=== PATIENT | female | born 1965 | race Caucasian/White ===

== ENCOUNTER → 2017-04-25 | Outpatient (CLI) | payer OTHER ==
[~2017-04-25] MED LIST: DULO60CA44 PO; ENOX40IN SQ; FLUT0.15 NAE; FLVHFA44 INH; IPRA0.03 NAE; IPRASOL4 INH; LORA-741 PO; MELO7.5T5 PO; OXYB5TAB PO; OXYC1TAB3 PO; TYLOTC500 PO; VNTHFA/IN INH
--- NOTE | 2017-04-25 13:15 | DIAGNOSTIC IMAGING REPORT ---
A-PORT CHECK CLINICAL HISTORY: 52 years-old Female presenting with RECTAL CA. TECHNIQUE/PROCEDURE: Multiple fluoroscopic spot images were obtained as part of an implanted Mediport evaluation. Approximately 35 cc of Optiray 300 was injected. COMPARISON: None. FINDINGS: Appropriate opacification of the catheter without evidence of breakage or kink. Some resistance of flow was met upon injection. Contrast freely exited the catheter terminates partially opacifying the superior vena cava and right atrium. Normal forward flow through the right atrium. However, a filling defect along the distal portion of the catheter within the superior vena cava is evident. No convincing evidence of a fibrin sheath. Fluoroscopy dosage (mGy): Not available. Fluoroscopy time: 0.3 minutes. Number of fluoroscopic spot images: 38. 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 The more superior portion of the SVC cannot be assessed. Follow-up contrast enhanced CT of the chest to be considered to evaluate for the extent of possible thrombus. The report will be called/faxed according to standard departmental protocol. Electronically signed by: Segun Allred M.D. 04/25/2017 1:14 PM Dictated Date/Time: 04/25/2017 1:10 PM
== END | disposition home or self-care (01) ==
LOC: C.RAD 12:07
PROVIDERS: ATTEND Internal Medicine Hematology
DX: Z51.11 Encounter for antineoplastic chemotherapy (principal); C19 Malignant neoplasm of rectosigmoid junction; T82.514A Breakdown (mechanical) of infusion catheter, initial encounter; X58.XXXA Exposure to other specified factors, initial encounter

== ENCOUNTER 2017-05-13 21:56 | Emergency (ER) | payer OTHER ==
[~2017-05-13] VITALS: Ht 162.6 cm; Wt 87.7 kg
[2017-05-13 21:58] VITALS: Ht 162.6 cm; Wt 87.7 kg
[2017-05-13] MEDS ORDERED: LORA-741 PO (22:27)
[2017-05-13] MEDS ORDERED: IPRA0.03 NAE (22:27)
[2017-05-13] MEDS ORDERED: FLUT0.15 NAE (22:27)
[2017-05-13] MEDS ORDERED: IPRASOL4 INH (22:27)
[2017-05-13] MEDS ORDERED: TYLOTC500 PO (22:27)
[2017-05-13] MEDS ORDERED: ENOX40IN SQ (22:27)
[2017-05-13] MEDS ORDERED: OXYC1TAB3 PO (22:27)
[2017-05-13] MEDS ORDERED: FLVHFA44 INH (22:27)
[2017-05-13] MEDS ORDERED: MELO7.5T5 PO (22:27)
[2017-05-13] MEDS ORDERED: VNTHFA/IN INH (22:27)
[2017-05-13] MEDS ORDERED: DULO60CA44 PO (22:27)
[2017-05-13] MEDS ORDERED: OXYB5TAB PO (22:27)
[2017-05-13 22:42] LABS: MEAN CELL VOLUME 90.7 fL (80-100); MEAN CORPUSCULAR HEMOGLOBIN 29.5 pg (25-34); MEAN CORPUSCULAR HGB CONC 32.5 g/dl (32-36); MEAN PLATELET VOLUME 9.5 fL (7.4-10.4); PLATELET COUNT 496 K/uL (130-400); RED BLOOD COUNT 3.97 M/uL (4.2-5.4); WHITE BLOOD COUNT 10.76 K/uL (4.8-10.8)
[2017-05-13 22:44] LABS: INR 0.9 (0.9-1.1); PARTIAL THROMBOPLASTIN RATIO 0.9
[2017-05-13 22:55] LABS: BUN/CREATININE RATIO 19.9 (10-20); CREATININE 0.77 mg/dl (0.60-1.20); POTASSIUM 3.6 mmol/L (3.5-5.1)
[2017-05-13 23:01] LABS: BASO % 0.7 %; BASO ABS # 0.08 K/uL (0-0.2); COMPLETE YES; EOS % 5.2 %; IG% 0.2 %; LYMPH % 49.7 %; LYMPH ABS # 5.35 K/uL (1.2-3.4); MONO % 7.2 %
[2017-05-13 23:06] LABS: ALB/GLOB RATIO 0.8 (0.9-2); THYROID STIMULATING HORMONE 2.37 uIu/ml (0.300-4.500)
[2017-05-13] MEDS ORDERED: OPTIRAY 320 IV PRN (23:15)
[2017-05-13 23:18] LABS: CKMB/CK RATIO 1.5 (0-3.0)
[2017-05-13 23:25] LABS: URINE APPEARANCE CLOUDY (CLEAR); URINE BILIRUBIN NEG (NEG); URINE COLOR YELLOW; URINE EPITHELIAL CELL AUTO >30 /lpf (0-5); URINE NITRITE NEG (NEG); URINE SPECIFIC GRAVITY 1.011 (1.000-1.030); UROBILINOGEN NEG (NEG); ZZUR CULT IF INDIC CLEAN CATCH YES
[2017-05-13 23:30] LABS: MANUAL MICROSCOPIC REQUIRED? NO; REVIEW REQ? NO
[2017-05-13] MEDS ORDERED: MoRPHine SULFATE 4 MG/ML 1 ML CARP\\VIAL IV STA (23:43)
[2017-05-14] MEDS ORDERED: SODIUM CHLORIDE 0.9% 1000ML 1,000 ML IV STA (00:35)
[2017-05-14] MEDS ORDERED: MoRPHine SULFATE 4 MG/ML 1 ML CARP\\VIAL IV STA (02:27)
[2017-05-14 02:40] VITALS: BP 133/86; PULSE 113; TEMP 36.8; O2SAT 94
--- NOTE | 2017-05-14 02:49 | EMERGENCY ROOM VISIT NOTE ---
History First contact with patient: 22:01 Chief Complaint: ABDOMINAL PAIN Stated Complaint: TINGLING, PREVIOUS COLON SURG, ABD PAIN Nursing Triage Summary: Pt reports she had colorectal surgery 2 weeks ago. Today she developed diffuse abd pain and tingling in bilat hands/feet History of Present Illness The patient is a 52 year old female who presents to the Emergency Room with complaints of lower abdominal pain for the past day who had colon resection 2 weeks ago for colon carcinoma who was receiving chemotherapy as she had metastases to the lung and liver that are now resolved after her PET scan March 2017 of this year. Her last chemotherapy was March 02 of this year. She follows with Dr. Beckman from oncology. Her colon resection was done at [facility] by Dr. Carreon. This is done 2 weeks ago. She describes the pain as aching, ranging in severity 6 out of 10 to the lower abdomen. It does not radiate. Nothing makes it better or worse. Patient called the on-call nurse from the surgery and advised to go the ER. Patient also plans of tingling to all extremities that is slightly worse on the left side. Patient denies difficulty ambulating or difficulty grasping objects. Patient denies chest pain, dyspnea, fever, chills, numbness, weakness, nausea, vomiting, diarrhea, back pain, urinary symptoms. Review of Systems See HPI for pertinent positives & negatives. A total of 10 systems reviewed and were otherwise negative. Past Medical/Surgical History Colon cancer with colon resection and metastasis to the lung and liver, asthma, anxiety, depression, osteoarthritis Social History Smoking Status: Never Smoker Smokeless Tobacco Use: No Alcohol Use: none Drug Use: none Current/Historical Medications Scheduled Duloxetine Hcl (Cymbalta), 60 MG PO DAILY Enoxaparin (Lovenox), 40 MG SQ DAILY Fluticasone Propionate (Flovent Hfa), 2 PUFFS INH BID Fluticasone Propionate (Nasal) (Flonase Allergy Relief), 1 SPRAY TAMY BID Ipratropium [place] (Nasal) (Ipratropium [place]), 2 SPRAY TAMY BID Ipratropium-Albuterol (Duoneb), 1 TREATMENT INH Q4H Lorazepam (Ativan), 0.5-1 MG PO HS Meloxicam (Mobic), 15 MG PO DAILY Oxybutynin Chloride (Oxybutynin Chloride Er), 5 MG PO DAILY Scheduled PRN Acetaminophen (Tylenol), 1,000 MG PO Q8 PRN for Pain Albuterol Hfa (Ventolin Hfa), 2 PUFFS INH Q4 PRN for SOB/Wheezing Oxycodone Ir (Roxicodone Ir), 5-10 MG PO Q4H PRN for Severe Pain Allergies Coded Allergies: Sulfa Antibiotics (Unverified Allergy, Unknown, SOB and hives, 05/13/17) Physical Exam Vital Signs Date Time Temp Pulse Resp B/P (MAP) Pulse Ox O2 Delivery O2 Flow Rate FiO2 05/14/17 02:40 36.8 113 22 133/86 94 Room Air 05/14/17 00:28 111 20 121/103 96 Room Air 05/13/17 21:58 36.7 127 20 167/93 99 Room Air Physical Exam VITALS: Vitals are noted on the nurse's note and reviewed by myself. Vital signs stable. GENERAL: Pleasant female, in no acute distress, nondiaphoretic, well-developed well-nourished. SKIN: The skin was without rashes, erythema, edema, or bruising. There is no tenting of the skin. Capillary reflex less than 2 seconds. HEAD: Normocephalic atraumatic. EARS: External auditory canals clear, tympanic membranes pearly cid without erythema or effusion bilaterally. EYES: Pupils equal round and reactive to light and accommodation. Conjunctivae without injection, sclerae without icterus. Extraocular movements intact. NOSE: Patent, turbinates without inflammation or discharge. MOUTH: Mucous membranes moist. Pharynx without erythema or exudate. Uvula midline. Airway patent. Tongue does not deviate. NECK: Supple without nuchal rigidity. No lymphadenopathy. No thyromegaly. Cervical spine is nontender. No JVD. HEART: Regular rate and rhythm LUNGS: Clear to auscultation bilaterally without wheezes, rales or rhonchi. No dullness to percussion. No retractions or accessory muscle use. ABDOMEN: Positive bowel sounds x 4. Normal tympanic percussion. Soft, tender to palpation lower abdomen, no CVA tenderness, incisional scars intact without signs of infection, without masses or organomegaly. Townsend sign negative. No guarding or rebound tenderness. MUSCULOSKELETAL: No muscle atrophy, erythema, or edema noted. NEURO: Patient was alert and oriented to person place and time. Normal sensation to light and sharp touch. No focal neurological deficits. Medical Decision & Procedures Laboratory Results 05/13/17 22:30 Red Blood Count 3.97, Mean Corpuscular Volume 90.7, Mean Corpuscular Hemoglobin 29.5, Mean Corpuscular Hemoglobin Concent 32.5, Mean Platelet Volume 9.5, Neutrophils (%) (Auto) 37.0, Lymphocytes (%) (Auto) 49.7, Monocytes (%) (Auto) 7.2, Eosinophils (%) (Auto) 5.2, Basophils (%) (Auto) 0.7, Neutrophils # (Auto) 3.97, Lymphocytes # (Auto) 5.35, Monocytes # (Auto) 0.78, Eosinophils # (Auto) 0.56, Basophils # (Auto) 0.08 05/13/17 22:30 Test 05/13/17 22:30 05/13/17 22:56 05/13/17 23:10 White Blood Count 10.76 K/uL (4.8-10.8) Red Blood Count 3.97 M/uL (4.2-5.4) Hemoglobin 11.7 g/dL (12.0-16.0) Hematocrit 36.0 % (37-47) Mean Corpuscular Volume 90.7 fL (80-100) Mean Corpuscular Hemoglobin 29.5 pg (25-34) Mean Corpuscular Hemoglobin Concent 32.5 g/dl (32-36) Platelet Count 496 K/uL (130-400) Mean Platelet Volume 9.5 fL (7.4-10.4) Neutrophils (%) (Auto) 37.0 % Lymphocytes (%) (Auto) 49.7 % Monocytes (%) (Auto) 7.2 % Eosinophils (%) (Auto) 5.2 % Basophils (%) (Auto) 0.7 % Neutrophils # (Auto) 3.97 K/uL (1.4-6.5) Lymphocytes # (Auto) 5.35 K/uL (1.2-3.4) Monocytes # (Auto) 0.78 K/uL (0.11-0.59) Eosinophils # (Auto) 0.56 K/uL (0-0.5) Basophils # (Auto) 0.08 K/uL (0-0.2) RDW Standard Deviation 46.6 fL (36.4-46.3) RDW Coefficient of Variation 14.1 % (11.5-14.5) Immature Granulocyte % (Auto) 0.2 % Immature Granulocyte # (Auto) 0.02 K/uL (0.00-0.02) Prothrombin Time 10.0 SECONDS (9.0-12.0) Prothromb Time International Ratio 0.9 (0.9-1.1) Activated Partial Thromboplast Time 24.0 SECONDS (21.0-31.0) Partial Thromboplastin Ratio 0.9 Anion Gap 9.0 mmol/L (3-11) Est Creatinine Clear Calc Drug Dose 92.7 ml/min Estimated GFR () 103.6 Estimated GFR (Non- 89.4 BUN/Creatinine Ratio 19.9 (10-20) Bedside Lactic Acid Venous 1.71 mmol/L (0.90-1.70) Calcium Level 9.0 mg/dl (8.5-10.1) Magnesium Level 2.0 mg/dl (1.8-2.4) Total Bilirubin 0.1 mg/dl (0.2-1) Aspartate Amino Transf (AST/SGOT) 23 U/L (15-37) Alanine Aminotransferase (ALT/SGPT) 28 U/L (12-78) Alkaline Phosphatase 127 U/L (45-117) Total Creatine Kinase 65 U/L (26-192) Creatine Kinase MB 1.0 ng/ml (0.5-3.6) Total Protein 7.7 gm/dl (6.4-8.2) Albumin 3.3 gm/dl (3.4-5.0) Globulin 4.4 gm/dl (2.5-4.0) Albumin/Globulin Ratio 0.8 (0.9-2) Thyroid Stimulating Hormone (TSH) 2.370 uIu/ml (0.300-4.500) Creatine Kinase MB Ratio (0-3.0) Urine Color YELLOW Urine Appearance CLOUDY (CLEAR) Urine pH 6.0 (4.5-7.5) Urine Specific [place]put[place] 1.011 (1.000-1.030) Urine Protein NEG (NEG) Urine Glucose (UA) NEG (NEG) Urine Ketones NEG (NEG) Urine Occult Blood NEG (NEG) Urine Nitrite NEG (NEG) Urine Bilirubin NEG (NEG) Urine Urobilinogen NEG (NEG) Urine Leukocyte Esterase SMALL (NEG) Urine WBC (Auto) 10-30 /hpf (0-5) Urine RBC (Auto) 0-4 /hpf (0-4) Urine Hyaline Casts (Auto) 1-5 /lpf (0-5) Urine Epithelial Cells (Auto) >30 /lpf (0-5) Urine Bacteria (Auto) 2+ (NEG) Medications Administered Medications (Trade) Dose Ordered Sig/Radha Route Start Time Stop Time Status Last Admin Dose Admin Morphine Sulfate (MoRPHine SULFATE INJ) 4 mg NOW STAT IV 05/13/17 23:43 05/13/17 23:44 DC 05/13/17 23:52 4 MG Sodium Chloride 1,000 ml @ 999 mls/hr Q1H1M STAT IV 05/14/17 00:35 05/14/17 01:35 DC 05/14/17 00:46 999 MLS/HR Morphine Sulfate (MoRPHine SULFATE INJ) 4 mg NOW STAT IV 05/14/17 02:27 05/14/17 02:28 DC 05/14/17 02:36 4 MG ED Course Prior records/ancillary studies reviewed. Triage Nursing notes reviewed. Additional history obtained from family The patient's history was concerning for abdominal pain. Differential diagnosis: Etiologies such as appendicitis, diverticulitis, PUD, biliary pathology, UTI, pancreatitis, obstruction, mesenteric ischemia, aortic pathology, infections, inflammatory bowel disease, renal colic, as well as others were entertained. Physical examination findings: As above. ER treatment provided: NSS, Zofran, Morphine On reassessment the patient felt better. Diagnostics interpreted by me: ECG: Normal sinus, normal intervals, no acute ST-T wave changes, rate of 108. Impression sinus tachycardia interpreted by myself The labs revealed no leukocytosis. Lactic acid 1.7. Negative urine Imaging studies: CT scan was reviewed from stat radiology and shows some inflammatory change control analyst the left lower quadrant retroperitoneal area where the surgery was at Consultation: A consultation was placed with the colorectal surgeon at [facility], Dr. Cuellar. The case was discussed and diagnostics were reviewed. She recommends transfer to their facility for observation. Exam and history seems constant with postsurgical complication from recent colorectal cancer resection. Patient will be transferred to table via ALS in stable condition. Patient is agreeable to transfer. Patient had no leukocytosis. She was well-appearing. She was hydrated as above. Her pain was managed. By the evaluation outlined above emergent etiologies such as appendicitis, diverticulitis, PUD, biliary pathology, UTI, pancreatitis, obstruction, mesenteric ischemia, aortic pathology, inflammatory bowel disease, renal colic , as well as others were deemed relatively unlikely. The pt informed about the findings as listed above. All questions were answered and pleased with the treatment. Case reviewed with my attending. Medical Decision as above Impression Primary Impression: Post-operative complication Additional Impression: Abdominal pain Departure Information Dispostion Transfer Acute Care Facility Condition GOOD Referrals Anuj Block M.D. (PCP) Patient Instructions My [facility] Problem Qualifiers Primary Impression: Post-operative complication Surgical complication system/body Area: digestive system Surgical complication type: other Qualified Codes: K91.89 - Other postprocedural complications and disorders of digestive system
--- NOTE | 2017-05-14 08:25 | DIAGNOSTIC IMAGING REPORT ---
ABD/PELVIS IV CONTRAST ONLY HISTORY: 52 years-old Female lower abd pain, colon rescetion 2 weeks ago for Colon CA acute lower abdominal pain with history of colon cancer and prior recent partial colon resection 2 weeks prior. Initial exam. COMPARISON: None available TECHNIQUE: Multiple axial CT images of the abdomen and pelvis were obtained following the intravenous administration of 93 mL Optiray 320. A dose lowering technique was used consistent with the principals of LEANDRA. FINDINGS: There is a 5 mm noncalcified pulmonary nodule of the posterior basal segment left lower lobe seen on image 73 of the axial series. Focal fatty attenuating area of probable subpleural fat, 10 mm is seen at the level of the right lung base. The liver, spleen, pancreas and adrenal glands are within normal limits. Gallbladder is contracted. Kidneys and proximal ureters are unremarkable. Urinary bladder is within normal limits. Is minimal dilation of the distal ureters, likely reactive changes from the pelvic changes as described below. There is mild atherosclerotic plaquing of the abdominal aorta. There is no bulky retroperitoneal adenopathy. Prior hysterectomy. There is no small bowel dilation or evidence of obstruction. Appendix is normal. Postsurgical changes are noted in the region of the mid sigmoid colon suggesting recent partial sigmoid colon resection with mild surrounding stranding. Round fluid attenuating focus within the dependent pelvis perirectal space is noted, 1.7 x 1.7 cm. No large postsurgical collections are seen. There is additional stranding tracking along the pericolic gutter on the left with probable port site of the ventral supraumbilical midline abdomen seen on image 188. Small fat filled umbilical hernia is noted with diastases 1.4 cm. Mild degenerative changes involve the bilateral sacroiliac joints. No lytic or sclerotic bony metastasis are definitely seen. IMPRESSION: 1. Post surgical changes of the mid sigmoid colon suggests recent partial resection with mild adjacent mesenteric stranding, likely normal postsurgical changes. There is a probable port site of the ventral supraumbilical midline. 2. 1.7 cm fluid attenuating focus of the prerectal dependent pelvis is nonspecific and may reflect a reactive postsurgical fluid collection. No definite abscess or drainable fluid collections are identified. 3. No pneumoperitoneum or bowel obstruction. 4. Small fat filled periumbilical hernia. 5. Indeterminate 5 mm noncalcified pulmonary nodule of the posterior basal segment left lower lobe. Further evaluation with CT of the chest on a nonemergent basis is suggested if not already conducted for metastatic survey. The above report was generated using voice recognition software. It may contain grammatical, syntax or spelling errors. Electronically signed by: Edu Troy M.D. 05/14/2017 8:24 AM Dictated Date/Time: 05/14/2017 8:10 AM
== END 2017-05-14 02:45 | disposition short-term general hospital (02) ==
LOC: C.EDB 21:57
DX: K91.89 Other postprocedural complications and disorders of digestive system (principal); Y83.6 Removal of other organ (partial) (total) as the cause of abnormal reaction of the patient, or of later complication, without mention of misadventure at the time of the procedure; J45.909 Unspecified asthma, uncomplicated; M19.90 Unspecified osteoarthritis, unspecified site; F41.9 Anxiety disorder, unspecified; F32.9 Major depressive disorder, single episode, unspecified; Z85.038 Personal history of other malignant neoplasm of large intestine; Z85.05 Personal history of malignant neoplasm of liver; Z85.118 Personal history of other malignant neoplasm of bronchus and lung; Z92.21 Personal history of antineoplastic chemotherapy; Z90.49 Acquired absence of other specified parts of digestive tract; Z79.01 Long term (current) use of anticoagulants; Z79.899 Other long term (current) drug therapy

== ENCOUNTER 2017-08-29 02:25 | Emergency (ER) | payer OTHER ==
[~2017-08-29] VITALS: Ht 162.6 cm; Wt 92.0 kg
[2017-08-29 02:35] VITALS: Ht 162.6 cm; Wt 92.0 kg
--- NOTE | 2017-08-29 02:36 | EMERGENCY ROOM VISIT NOTE ---
History Report prepared by Vasiliy: Deion Bragg Under the Supervision of: Dr. Damari Ramirez D.O. First contact with patient: 02:30 Chief Complaint: ABDOMINAL PAIN Stated Complaint: ABDOMINAL PAIN History of Present Illness The patient is a 52 year old female who presents to the Emergency Room with complaints of sudden, constant, severe, abdominal pain beginning two hours ago. The patient states she was lying in bed and watching TV when her symptoms began. She reports her pain was across her entire abdomen, and she became nauseous and diaphoretic. The patient notes her pain started at a 10/10 in severity, and it decreased to a 4/10 after EMS gave her pain medication. She states her nausea also decreased after being given Zofran. The patient reports she has a history of metastatic colon cancer. She notes she has been receiving chemo treatment for the past 9 months, and she is currently on chemotherapy pills because it metastasized. The patient states she takes the pills for 14 days and then is off 7 days. She reports she finished her 14 days streak three days ago, and she is now on her 7 day break. The patient notes she felt tired today. She states she went to work the past two days and actually felt her best today. The patient reports she moved her bowel several times today, and they were all normal movements. She denies a history of a bowel obstruction, blood in her stool, fevers, and chills. EMS states the patient was on antibiotics for a UTI last month. Source of History: patient, EMS Onset: 2 hours ago Position: abdomen Symptom Intensity: severe Quality: other (sudden) Timing: constant Associated Symptoms: + diaphoresis, + nausea, No fevers, No chills Note: Denies: blood in stool, history of a bowel obstruction Review of Systems See HPI for pertinent positives & negatives. A total of 10 systems reviewed and were otherwise negative. Past Medical & Surgical Medical Problems: (1) Metastatic colon cancer in female Family History Patient reports no known family medical history. Social History Smoking Status: Never Smoker Alcohol Use: none Drug Use: none Marital Status: single Housing Status: lives alone Occupation Status: employed Current/Historical Medications Scheduled Capecitabine (Xeloda), 3 MG PO BID Duloxetine Hcl (Cymbalta), 60 MG PO DAILY Fluticasone Propionate (Nasal) (Flonase Allergy Relief), 1 SPRAY TAMY BID Ipratropium Galt (Nasal) (Ipratropium Galt), 2 SPRAY TAMY BID Ipratropium-Albuterol (Duoneb), 1 TREATMENT INH QID Meloxicam (Mobic), 15 MG PO DAILY Mometasone Furoate-Formoterol (Dulera 100/5 Mcg), 2 PUFFS INH BID Oxybutynin Chloride (Oxybutynin Chloride Er), 5 MG PO DAILY Pyridoxine Hcl (Vitamin B6 100 Mg), 100 MG PO DAILY Scheduled PRN Albuterol Hfa (Ventolin Hfa), 2 PUFFS INH Q4 PRN for cough,sob,wheeze Carisoprodol (Soma), 350 MG PO Q6 PRN for Muscle Spasms Ondansetron Hcl (Zofran), 8 MG PO Q8 PRN for Nausea Trazodone Hcl (Trazodone), 50 MG PO HS PRN for Sleep Allergies Coded Allergies: Sulfa Antibiotics (Unverified Allergy, Unknown, SOB and hives, 08/29/17) Physical Exam Vital Signs Date Time Temp Pulse Resp B/P (MAP) Pulse Ox O2 Delivery O2 Flow Rate FiO2 08/29/17 06:18 135 08/29/17 05:35 134 24 144/87 95 Room Air 08/29/17 05:07 130 24 132/103 97 Room Air 08/29/17 04:30 133 28 134/91 96 Room Air 08/29/17 03:30 112 18 136/85 96 Room Air 08/29/17 02:35 36.7 113 18 131/86 97 Room Air 08/29/17 02:33 113 Physical Exam HEENT: Head - normocephalic and atraumatic Pupils are equal, round, and reactive to light. Extraocular eye muscles are intact, and sclera are anicteric. Nose - moist nasal mucosa without discharge. Mouth - moist buccal mucosa. Oropharynx is nonerythematous and there is no tonsillar exudate or edema noted. Neck: Supple; no JVD, nuchal rigidity, cervical lymphadenopathy. Heart: Tachycardic rate and regular rhythm. There is a normal S1 and S2 with no murmurs, clicks, or gallops appreciated. Lungs: Clear to auscultation bilaterally with no wheezes, rales, or rhonchi. Abdomen: Soft, mild diffuse tenderness with palpation, distended, with hypoactive bowel sounds. There are no palpable pulsatile masses or hepatosplenomegaly. There is no guarding, rigidity, or rebound noted. Extremities: No evidence of cyanosis, clubbing, or edema. There are easily palpable peripheral pulses. Skin: warm and dry with good turgor and no rashes. Pale. Medical Decision & Procedures ER Provider Diagnostic Interpretation: Radiology results as stated below per my review and the radiologist's interpretation: Obstruction series X-ray: significant colonic fecal retention, dilated colon, med port in place in right chest, perihilar fullness bilaterally. CT ABDOMEN & PELVIS with contrast: Comparison May 13. New and increased size of lung base nodules, some with cavitation. Likely metastases. There are also some new low density liver lesions which were not seen on the previous which may also represent metastatic foci. There is free fluid. In the pelvis, there is more focal fluid with areas of increased density suspicious for hemorrhage. This is seen superior to the bladder and adjacent to the sigmoidectomy site. Exact source is indeterminate. No evidence for appendicitis. No bowel obstruction. Moderate stool burden. Radiologist: John Hoover MD Study ready at 0357 and initial results transmitted at 3822. Laboratory Results 08/29/17 02:40 Red Blood Count 4.35, Mean Corpuscular Volume 89.9, Mean Corpuscular Hemoglobin 29.4, Mean Corpuscular Hemoglobin Concent 32.7, Mean Platelet Volume 9.2, Neutrophils (%) (Auto) 63.4, Lymphocytes (%) (Auto) 28.9, Monocytes (%) (Auto) 4.6, Eosinophils (%) (Auto) 2.3, Basophils (%) (Auto) 0.5, Neutrophils # (Auto) 7.66, Lymphocytes # (Auto) 3.50, Monocytes # (Auto) 0.56, Eosinophils # (Auto) 0.28, Basophils # (Auto) 0.06 08/29/17 02:40 Test 08/29/17 02:40 08/29/17 03:30 08/29/17 06:11 White Blood Count 12.10 K/uL (4.8-10.8) Red Blood Count 4.35 M/uL (4.2-5.4) Hemoglobin 12.8 g/dL (12.0-16.0) Hematocrit 39.1 % (37-47) Mean Corpuscular Volume 89.9 fL (80-100) Mean Corpuscular Hemoglobin 29.4 pg (25-34) Mean Corpuscular Hemoglobin Concent 32.7 g/dl (32-36) Platelet Count 309 K/uL (130-400) Mean Platelet Volume 9.2 fL (7.4-10.4) Neutrophils (%) (Auto) 63.4 % Lymphocytes (%) (Auto) 28.9 % Monocytes (%) (Auto) 4.6 % Eosinophils (%) (Auto) 2.3 % Basophils (%) (Auto) 0.5 % Neutrophils # (Auto) 7.66 K/uL (1.4-6.5) Lymphocytes # (Auto) 3.50 K/uL (1.2-3.4) Monocytes # (Auto) 0.56 K/uL (0.11-0.59) Eosinophils # (Auto) 0.28 K/uL (0-0.5) Basophils # (Auto) 0.06 K/uL (0-0.2) RDW Standard Deviation 59.8 fL (36.4-46.3) RDW Coefficient of Variation 18.4 % (11.5-14.5) Immature Granulocyte % (Auto) 0.3 % Immature Granulocyte # (Auto) 0.04 K/uL (0.00-0.02) Est Creatinine Clear Calc Drug Dose 82.2 ml/min Estimated GFR () 87.0 Estimated GFR (Non- 75.0 BUN/Creatinine Ratio 18.4 (10-20) Calcium Level 8.6 mg/dl (8.5-10.1) Total Bilirubin 0.3 mg/dl (0.2-1) Direct Bilirubin < 0.1 mg/dl (0-0.2) Aspartate Amino Transf (AST/SGOT) 26 U/L (15-37) Alanine Aminotransferase (ALT/SGPT) 22 U/L (12-78) Alkaline Phosphatase 122 U/L (45-117) Total Protein 7.5 gm/dl (6.4-8.2) Albumin 3.4 gm/dl (3.4-5.0) Lipase 170 U/L (73-393) Urine Color YELLOW Urine Appearance CLOUDY (CLEAR) Urine pH 5.0 (4.5-7.5) Urine Specific Jayton 1.021 (1.000-1.030) Urine Protein NEG (NEG) Urine Glucose (UA) NEG (NEG) Urine Ketones NEG (NEG) Urine Occult Blood TRACE (NEG) Urine Nitrite NEG (NEG) Urine Bilirubin NEG (NEG) Urine Urobilinogen NEG (NEG) Urine Leukocyte Esterase NEG (NEG) Urine WBC (Auto) 1-5 /hpf (0-5) Urine RBC (Auto) 0-4 /hpf (0-4) Urine Hyaline Casts (Auto) 10-30 /lpf (0-5) Urine Epithelial Cells (Auto) >30 /lpf (0-5) Urine Bacteria (Auto) NEG (NEG) Urine Pathogenic Casts 1-5 GRANULAR CASTS /lpf (0) Bedside Hemoglobin 12.2 g/dl (12.0-16.0) Bedside Hematocrit 36 % (37-47) Bedside Sodium 137 mEq/L (135-144) Bedside Potassium 4.1 mEq/L (3.3-5.0) Bedside Chloride 101 mEq/L (101-112) Bedside Total CO2 23 mEq/l (24-31) Anion Gap 18.0 mmol/L (16-25) Bedside Blood Urea Nitrogen 14 mg/dl (7-18) Bedside Creatinine 0.7 mg/dl (0.6-1.3) Bedside Glucose (other) 136 mg/dl (70-99) Bedside Ionized Calcium (Kyler) 1.13 mmol/l (1.12-1.32) Laboratory results per my review. Medications Administered Medications (Trade) Dose Ordered Sig/Radha Route Start Time Stop Time Status Last Admin Dose Admin Morphine Sulfate (MoRPHine SULFATE INJ) 4 mg NOW STAT IV 08/29/17 06:01 08/29/17 06:02 DC 08/29/17 06:13 4 MG Procedure 0601: Ordered Morphine Sulfate 4mg IV; IV NSS drip ED Course 0231: The patient was evaluated in room B02. A complete history and physical examination were performed. Nursing notes and previous electronic medical records were reviewed. IV lock was established and labs were drawn as above. The patient had an obstruction series as described above. 0320: I ordered a CT to rule out colonic obstruction. 0324: I reevaluated the patient and updated her about her x-ray results. She is still feeling okay and has agreed to a CT. 0447: I discussed the [facility]'s scan [facility] 0[facility]: I reevaluated the patient and updated her of my consult with Frank. She is coughing and her heart rate has gone up 0524: I discussed the patient's case with Muna Espinosa. He is the one who performed her sigmoidectomy in April. He accepted the patient for transfer and further management and care. 0531: I updated the patient of my consult with Dr. Carreon. She is aware of the transfer. I answered all questioned and discussed the treatment plan. The patient verbalized complete understanding. 0548: I reevaluated the patient. Her heart rate is in the 130s, and she is still anxious. 0600: I reevaluated the patient. Her pain has intensified. The nurse will perform an iSTAT to recheck the patient's H&H. 0601: Ordered Morphine Sulfate 4mg IV 0612: The patient's iSTAT showed a hemoglobin of 12.2 and a hematocrit of 36 Which are unchanged from her initial labs. Medical Decision The patient is a 52 year old female who presents to the ED with severe abdominal pain. Differential diagnosis includes perforated viscus, colonic obstruction, small bowel obstruction, cystitis. Lab results show: WBC of 12.1, hemoglobin of 12.8, hematocrit of 39.1, normal renal function, glucose of 138, LFTs and lipase are normal. Urinalysis had trace blood. This is a 52-year-old female patient with a history of colon cancer status post sigmoidectomy and reanastomosis. She does have metastatic disease to the spine , liver and lung. The patient had a very sudden onset of abdominal pain this evening. CT scan of the abdomen/pelvis shows acute intra-abdominal hemorrhage with hematoma formation. This blood is noted in the area of the sigmoid resection. The radiologist was unable to identify the source of the bleeding. I discussed the case with the patient's surgeon in [place]. He does not believe that the source will be the sigmoid resection since the surgery is remote. We discussed the possibility of a gynecologic source of the bleeding. The patient's blood pressure has remained stable. H&H remained stable. The patient did have increased tachycardia while here in the emergency department but her blood pressure remained stable. The patient did have an episode of coughing which required the use of her inhaler. She states that when this happens, it is not unusual for her heart rate to go up. She did not complain of any shortness of breath. She was not hypoxic. Orders were written for ALS transfer. Consults Time Called: 050 Consulting Physician: Muna Espinosa Returned Call: 05 I discussed the patient's case with Muna Espinosa. He accepted the patient for transfer and further management and care. Impression Primary Impression: Intra abdominal hemorrhage Scribe Attestation The scribe's documentation has been prepared under my direction and personally reviewed by me in its entirety. I confirm that the note above accurately reflects all work, treatment, procedures, and medical decision making performed by me. Departure Information Dispostion Transfer Acute Care Facility Referrals Anuj Block M.D. (PCP) Patient Instructions My [facility]
[2017-08-29 02:54] LABS: BASO % 0.5 %; BASO ABS # 0.06 K/uL (0-0.2); EOS % 2.3 %; EOS ABS # 0.28 K/uL (0-0.5); HEMATOCRIT 39.1 % (37-47); HEMOGLOBIN 12.8 g/dL (12.0-16.0); IG# 0.04 K/uL (0.00-0.02); LYMPH % 28.9 %; MEAN CELL VOLUME 89.9 fL (80-100); MEAN CORPUSCULAR HEMOGLOBIN 29.4 pg (25-34); MEAN CORPUSCULAR HGB CONC 32.7 g/dl (32-36); MEAN PLATELET VOLUME 9.2 fL (7.4-10.4); MONO % 4.6 %; MONO ABS # 0.56 K/uL (0.11-0.59); NEUT % 63.4 %; NEUT ABS # 7.66 K/uL (1.4-6.5); PLATELET COUNT 309 K/uL (130-400); RED CELL DISTRIBUTION WIDTH CV 18.4 % (11.5-14.5); RED CELL DISTRIBUTION WIDTH SD 59.8 fL (36.4-46.3)
[2017-08-29 03:16] LABS: ALBUMIN 3.4 gm/dl (3.4-5.0); ALT/SGPT 22 U/L (12-78); AST/SGOT 26 U/L (15-37); BLOOD UREA NITROGEN 16 mg/dl (7-18); CALCIUM 8.6 mg/dl (8.5-10.1); CARBON DIOXIDE 26 mmol/L (21-32); CREATININE 0.89 mg/dl (0.60-1.20); GLUCOSE 138 mg/dl (70-99); LIPASE 170 U/L (73-393); POTASSIUM 3.6 mmol/L (3.5-5.1); SODIUM 135 mmol/L (136-145)
[2017-08-29 03:19] LABS: ALKALINE PHOSPHATASE 122 U/L (45-117); TOTAL PROTEIN 7.5 gm/dl (6.4-8.2)
[2017-08-29] MEDS ORDERED: OPTIRAY 320 IV PRN (03:30)
[2017-08-29] MEDS ORDERED: TRAZ50TA35 PO (04:08)
[2017-08-29] MEDS ORDERED: PYRI100T4 PO (04:09)
[2017-08-29] MEDS ORDERED: MOME100A INH (04:09)
[2017-08-29] MEDS ORDERED: ONDA8TAB6 PO (04:09)
[2017-08-29] MEDS ORDERED: XLD/500 PO (04:11)
[2017-08-29] MEDS ORDERED: CARI350T28 PO (04:12)
[2017-08-29] MEDS ORDERED: IPRASOL4 INH (04:13)
[2017-08-29] MEDS ORDERED: MELO15TA10 PO (04:14)
[2017-08-29] MEDS ORDERED: MoRPHine SULFATE 4 MG/ML 1 ML CARP\\VIAL IV STA (06:01)
[2017-08-29 06:23] LABS: ISTAT CREATININE 0.7 mg/dl (0.6-1.3); ISTAT IONIZED CALCIUM 1.13 mmol/l (1.12-1.32); ISTAT POTASSIUM 4.1 mEq/L (3.3-5.0)
--- NOTE | 2017-08-29 07:23 | DIAGNOSTIC IMAGING REPORT ---
CHEST AND ABDOMEN 2 VIEWS HISTORY: Generalized abdominal pain. COMPARISON: Abdomen and pelvis CT 05/13/2017. FINDINGS: There are few bilateral point nodule identified consistent with metastatic disease. The heart is normal in size. No pleural effusions. No pneumothorax. Right jugular Port-A-Cath terminates in the SVC. No pneumoperitoneum. No pneumatosis. No dilated loops of small bowel to suggest an obstruction. Moderate well-formed stool seen throughout the colon. Calcifications in the deep pelvis are consistent with phleboliths. No renal or ureteral calculi identified. IMPRESSION: 1. A few scattered bilateral pulmonary nodules consistent with metastatic disease. 2. Moderate well-formed stool seen throughout the colon. 3. No evidence for bowel obstruction. Electronically signed by: Titus Page M.D. 08/29/2017 7:22 AM Dictated Date/Time: 08/29/2017 7:19 AM
--- NOTE | 2017-08-29 07:44 | DIAGNOSTIC IMAGING REPORT ---
ABDOMEN AND PELVIS CT WITH IV CONTRAST CT DOSE: 875.50 mGy.cm HISTORY: Mid abdominal pain. Colon cancer. TECHNIQUE: Multiaxial CT images of the abdomen and pelvis were performed following the use of intravenous contrast. A dose lowering technique was utilized adhering to the principles of ALARA. COMPARISON STUDY: Abdomen and pelvis CT 05/13/2017. FINDINGS: Bilateral pulmonary nodules with the largest on the right measuring 2.1 cm. This is consistent with metastatic disease and has slightly progressed . No pneumoperitoneum. No pneumatosis. 1.2 cm lytic lesion at L1 which is new from the prior study. This also likely represents metastatic disease. Small fat-containing umbilical hernia. A few new small hypodense lesions within the liver with the largest measuring 13 mm. This is consistent with metastatic disease. The gallbladder, spleen, adrenal glands, pancreas, and kidneys are unremarkable. No retroperitoneal lymphadenopathy. Trace perihepatic ascites. The uterus is surgically absent. The bladder is decompressed. Trace perisplenic fluid. Anastomotic suture material at the mid sigmoid colon. Moderate stool within the colon. No dilated loops of bowel to suggest an obstruction. Normal appendix. Immediately superior to the bladder there is a 9.2 x 0.4 cm solid and cystic cystic lesion. Small amount of ascites is present. This cystic lesion results in mass effect along the bladder. This is new from the prior study and may be contiguous with the left ovary. Therefore, this favors an ovarian metastasis in the setting of peritoneal carcinomatosis. Question of subtle nodular thickening along the left paracolic gutter. This could also represent sites of developing peritoneal carcinomatosis. IMPRESSION: 1. Interval progression of metastatic disease as described above including new hepatic lesions. 2. There is a 9.2 x 8.4 cm lesion within the deep pelvis which demonstrates both solid and cystic components. This may be contiguous with the left ovary and is therefore highly suspicious with an ovarian metastasis. Focal area of hemorrhage or left ovarian torsion could also have a similar appearance but are considered less likely. Clinical correlation recommended. 3. Interval development of a small amount of ascites and question of subtle nodular thickening along the left paracolic gutter. This is also worrisome for peritoneal carcinomatosis. 4. No evidence for bowel obstruction. Electronically signed by: Titus Page M.D. 08/29/2017 7:43 AM Dictated Date/Time: 08/29/2017 7:28 AM
[2017-08-29 07:58] VITALS: BP 149/101; PULSE 130; TEMP 36.7; O2SAT 92
== END 2017-08-29 08:00 | disposition short-term general hospital (02) ==
LOC: EDBD 02:25 → C.EDB 02:27
DX: R58 Hemorrhage, not elsewhere classified (principal); R11.0 Nausea; R61 Generalized hyperhidrosis; C18.9 Malignant neoplasm of colon, unspecified; C79.51 Secondary malignant neoplasm of bone; C78.7 Secondary malignant neoplasm of liver and intrahepatic bile duct; C78.00 Secondary malignant neoplasm of unspecified lung; R00.0 Tachycardia, unspecified; R05 Cough; Z90.49 Acquired absence of other specified parts of digestive tract; Z79.1 Long term (current) use of non-steroidal anti-inflammatories (NSAID)

== ENCOUNTER → 2017-10-11 | Outpatient (CLI) | payer OTHER ==
[~2017-10-11] MED LIST changes: +ACET-1311 PO; +CARI350T28 PO; +DIPH-416 PO; +DXM/4 PO; +ENOX30IN4 SQ; -ENOX40IN SQ; +ENOX60IN SQ; -FLVHFA44 INH; +GADAVIST IV PRN; +LOPE1TAB25 PO; -LORA-741 PO; +MELO15TA10 PO; -MELO7.5T5 PO; +METO25TA3 PO; +MOME100A INH; +MORP-157 PO; +ONDA8TAB6 PO; +OXYC-57 PO; -OXYC1TAB3 PO; +PRLSR20 PO; +PROC1TAB5 PO; +PYRI100T4 PO; +TRAZ50TA35 PO; -TYLOTC500 PO; +XLD/500 PO
--- NOTE | 2017-10-11 14:45 | DIAGNOSTIC IMAGING REPORT ---
MRI THE PELVIS WITHOUT AND WITH GADOLINIUM CLINICAL HISTORY: Right hip pain. Metastatic colon carcinoma. COMPARISON STUDY: CT scan of the abdomen pelvis dated 08/29/2017 FINDINGS: Imaging was performed in the sagittal axial and coronal planes, before and after the administration of 8.5 cc of intravenous Gadavist. There are multifocal areas of marrow replacement, including a large 7 cm focus involving the right iliac bone and acetabulum. The findings are indicative of extensive skeletal metastasis. Lesions also involve the left ischium, and left sacrum. The large left pelvic mass described on the recent CT scan is no longer visualized. The patient is status post a prior hysterectomy. IMPRESSION: Multifocal areas of marrow replacement including a 7 cm lesion involving the right iliac bone and acetabulum. The findings are indicative of multifocal skeletal metastasis Electronically signed by: Javon Carrillo M.D. 10/11/2017 2:43 PM Dictated Date/Time: 10/11/2017 2:36 PM
== END | disposition home or self-care (01) ==
LOC: C.MRI 13:13
PROVIDERS: ATTEND Internal Medicine Hematology & Oncology
DX: M25.551 Pain in right hip (principal); C78.5 Secondary malignant neoplasm of large intestine and rectum

== ENCOUNTER → 2017-10-15 | Outpatient (CLI) | payer OTHER ==
--- NOTE | 2017-10-15 15:25 | DIAGNOSTIC IMAGING REPORT ---
LUMBAR SPINE COMBINATION CLINICAL HISTORY: 52 years-old Female presenting with ACUTE LOW BACK PAIN W/O SCIATICA, acute lumbar pain radiating into the right groin, history of colon and ovarian cancer. TECHNIQUE: Multisequence, multiplanar MR imaging of the lumbar spine was performed before and after the administration of intravenous contrast. IV contrast: 8.5 mL of Gadavist. COMPARISON: CT of abdomen pelvis from 08/29/2017. FINDINGS: Localizer images: Unremarkable. T1 hypointense, T2 hyperintense lesion is noted in the L1 vertebral body, which in retrospect was evident on CT from 08/29/2017. This demonstrates avid enhancement on postcontrast imaging. There is slight increased enhancement along the anterior aspect of the L1 vertebral body, which could suggest minimal soft tissue extension (series 18 image 8). Additional lesions of similar signal characteristics are evident though smaller than the lesion at L1. Lesions are noted at L2, L5, and the left sacral ala. No evidence of cortical breakthrough or soft tissue extension beyond the vertebral bodies at L2 or L5. No abnormal enhancement within the spinal canal to suggest CSF dissemination. Vertebral bodies maintain normal height and alignment. Apart from the previously described lesions, bone marrow signal intensity is normal. Mild disc desiccation and height loss noted at L4-5, where there is a mild disc bulge. This somewhat eccentrically bulges toward the right posterior lateral aspect. This results in potential mass effect on the exiting right L4 nerve root and the transiting right L5 nerve root. Moderate right and mild left neural foraminal narrowing. The remaining levels do not demonstrate significant spinal canal or neural foraminal narrowing. Spinal cord ends in good position at the inferior endplate of L1. Cauda equina normal in morphology. Paraspinal soft musculature within normal limits. Nonspecific edema in the subcutaneous tissue of the posterior lumbar region. IMPRESSION: 1. Findings highly suspicious for metastatic disease at L1, L2, L5, and the left sacral ala. Trace extra vertebral soft tissue extension anteriorly at L1 may be present. 2. Focal degenerative change at L4-5 with a disc bulge resulting in potential mass effect on the exiting right L4 nerve root and transiting right L5 nerve root. Moderate right and mild left neural foraminal narrowing at L4-5. The report will be called/faxed according to standard departmental protocol. Electronically signed by: Segun Allred M.D. 10/15/2017 3:24 PM Dictated Date/Time: 10/15/2017 3:17 PM
--- NOTE | 2017-10-15 15:26 | DIAGNOSTIC IMAGING REPORT ---
THORACIC SPINE COMBO HISTORY: 52 years-old Female ACUTE LOW BACK PAIN W/O SCIATICA acute low back pain with radiation into the right groin. History of colon and ovarian carcinoma. COMPARISON: CT abdomen and pelvis 08/29/2017 TECHNIQUE: Multiplanar multisequence MRI the thoracic spine was obtained both with and without the use of 8.5 mL Gadavist FINDINGS: Ill-defined hepatic lesions are seen on the large filling view probate paralegal localizer images compatible with hepatic metastasis as seen on comparison study. 2.2 x 2.7 cm lesion involves the posterior right lower lobe. There is an infiltrative lesion involving the L1 vertebral body demonstrating decreased T1 signal and increased STIR signal compatible with metastasis. 7 mm lesion involves the L2 vertebral body. Additionally, there is a 1.1 cm lesion involving the superior left aspect of the T8 vertebral body nicely seen on image 10 of series 5. No extension into the posterior elements. No significant central canal or foraminal narrowing. Probable focal fatty marrow involves the inferior endplate T9, 7 mm. No significant intervertebral disc space narrowing identified. IMPRESSION: 1. 11 mm metastatic lesion of the T8 vertebral body is noted without extension into the central canal. No significant central canal or foraminal narrowing. Additional metastatic lesions are seen at the L1 and L2 vertebral levels. 2. Redemonstration of hepatic and pulmonary metastasis. The above report was generated using voice recognition software. It may contain grammatical, syntax or spelling errors. Electronically signed by: Edu Troy M.D. 10/15/2017 3:25 PM Dictated Date/Time: 10/15/2017 3:16 PM
== END | disposition home or self-care (01) ==
LOC: C.MRI 12:57
PROVIDERS: ATTEND Internal Medicine Hematology & Oncology
DX: M25.551 Pain in right hip (principal); C78.5 Secondary malignant neoplasm of large intestine and rectum; M51.26 Other intervertebral disc displacement, lumbar region; C79.51 Secondary malignant neoplasm of bone; C78.7 Secondary malignant neoplasm of liver and intrahepatic bile duct; C78.01 Secondary malignant neoplasm of right lung

== ENCOUNTER 2017-10-29 14:25 | Inpatient (IN) | payer OTHER ==
[~2017-10-29] VITALS: Ht 162.6 cm; Wt 84.3 kg
[~2017-10-29 14:25] MED LIST changes: -CARI350T28 PO; -GADAVIST IV PRN; -IPRA0.03 NAE; -MELO15TA10 PO; -PYRI100T4 PO; -XLD/500 PO
[2017-10-29] MEDS ORDERED: NYSTATIN SUSP 500,000 U/5 ML UDC PO STA (15:38)
[2017-10-29] MEDS ORDERED: OPTIRAY 320 IV PRN (15:45)
[2017-10-29 15:49] LABS: BASO % 0.2 %; BASO ABS # 0.01 K/uL (0-0.2); EOS % 0.2 %; EOS ABS # 0.01 K/uL (0-0.5); HEMOGLOBIN 12.4 g/dL (12.0-16.0); IG# 0.06 K/uL (0.00-0.02); LYMPH % 23.5 %; LYMPH ABS # 1.03 K/uL (1.2-3.4); MEAN CELL VOLUME 86.6 fL (80-100); MEAN CORPUSCULAR HEMOGLOBIN 28.2 pg (25-34); MEAN CORPUSCULAR HGB CONC 32.6 g/dl (32-36); MEAN PLATELET VOLUME 9.1 fL (7.4-10.4); MONO % 5.7 %; MONO ABS # 0.25 K/uL (0.11-0.59); NEUT ABS # 3.02 K/uL (1.4-6.5); PLATELET COUNT 317 K/uL (130-400); RED CELL DISTRIBUTION WIDTH CV 17.5 % (11.5-14.5); RED CELL DISTRIBUTION WIDTH SD 55.3 fL (36.4-46.3); WHITE BLOOD COUNT 4.38 K/uL (4.8-10.8)
--- NOTE | 2017-10-29 15:49 | EMERGENCY ROOM VISIT NOTE ---
History First contact with patient: 14:58 Chief Complaint: TACHYCARDIA Stated Complaint: U Nursing Triage Summary: Patient a isa sent from [facility]. Patient was there today for raditaion treatment. When patient arrived to cancer center she felt like her heart was racing and when they took her VS her HR was around 120. They did not want to do the radiation with her heart rate that high and they brought patient to ED. Patient reports that she was also having chest pain and shortness of breath. The chest pain and shortness of breath have resolved at this time. Currently also doing chemo. Reports that she has been feeling tired and slept almost all weekend. History of Present Illness The patient is a 52 year old female who presents to the Emergency Room with complaints of dizziness and tachycardia which started at noon. She has a history of metastatic colon cancer and had been receiving chemotherapy and radiation. She was scheduled for radiation therapy can later this afternoon and was sent to the ER from the [facility] because of the tachycardia. States that she had left-sided chest pain which is now resolved denies any fevers or chills or cough. Also complains of dizziness. Denies any nausea, abdominal pain, diarrhea, dysuria. She has a history of PE and is currently on Lovenox but had missed 2 doses over the weekend. She also is on Toprol-XL for tachycardia and had missed her 2 evening doses. Source of History: patient Associated Symptoms: No fevers, No chills, No diaphoresis, No chest pain, No SOB, No nausea, No vomiting Review of Systems See HPI for pertinent positives & negatives. A total of 10 systems reviewed and were otherwise negative. Past Medical/Surgical History Medical Problems: (1) Metastatic colon cancer in female Family History Patient reports no known family medical history. Social History Smoking Status: Never Smoker Alcohol Use: none Drug Use: none Marital Status: single Housing Status: lives alone Occupation Status: employed Current/Historical Medications Scheduled Dexamethasone (Decadron), 4 MG PO BID Duloxetine Hcl (Cymbalta), 60 MG PO DAILY Enoxaparin (Lovenox), 90 MG INJ Q12 Fluticasone Propionate (Nasal) (Flonase Allergy Relief), 1 SPRAY NEB BID Metoprolol Succ (Toprol Xl) (Toprol-Xl), 25 MG PO QAM Metoprolol Succ (Toprol Xl) (Toprol-Xl), 12.5 MG PO QPM Mometasone Furoate-Formoterol (Dulera 100/5 Mcg), 2 PUFFS INH BID Morphine Sulfate (Morphine Sulfate ER), 30 MG PO Q12 Omeprazole (Prilosec), 20 MG PO DAILY Oxybutynin Chloride (Ditropan Xl), 5 MG PO DAILY Scheduled PRN Albuterol Sulfate (Proventil Hfa), 2 PUFFS INH Q4 PRN for SOB/Wheezing Diphenoxylate/Atropine (Lomotil), 1 TAB PO QID PRN for Diarrhea Ipratropium-Albuterol (Duoneb), 1 TREATMENT INH Q4H PRN for SOB/Wheezing Loperamide Hcl (Imodium), 2 MG PO UD PRN for Diarrhea Ondansetron Hcl (Zofran), 8 MG PO Q8 PRN for Nausea Oxycodone/Acetaminophen 5MG/325MG (Percocet 5MG/325MG), 1 TABLET PO Q4H PRN for Pain Prochlorperazine Maleate (Compazine), 10 MG PO Q6H PRN for Nausea Trazodone Hcl (Trazodone), 50 MG PO QPM PRN for Sleep Physical Exam Vital Signs Date Time Temp Pulse Resp B/P (MAP) Pulse Ox O2 Delivery O2 Flow Rate FiO2 10/29/17 19:25 99 10/29/17 18:20 130 119/87 99 Room Air 10/29/17 18:16 114 107/81 119 114/87 140 66/50 10/29/17 17:51 113 25 111/82 97 Room Air 10/29/17 16:07 113 119/81 99 Room Air 10/29/17 14:45 97 Room Air 10/29/17 14:42 109 10/29/17 14:41 97 Room Air 10/29/17 14:39 37.0 115 14 117/90 98 Room Air Physical Exam GENERAL: Patient is in no acute distress. HEENT: No acute trauma, normocephalic atraumatic, mucous membranes moist, oral thrush, no nasal congestion, no scleral icterus. NECK: No stridor, no adenopathy, no meningismus, trachea is midline. LUNGS: Clear to auscultation bilaterally, no wheeze, no rhonchi, breath sounds equal. HEART: tachycardia with no murmurs ABDOMEN: Soft, nontender, bowel sounds positive, no hernias, no peritonitis. EXTREMITIES: No cyanosis or edema, full range of motion of all the joints without pain or difficulty, no signs for acute trauma. NEUROLOGIC: Oriented x 3, no acute motor or sensory deficits, no focal weakness. SKIN: No rash, no jaundice, no diaphoresis. Medical Decision & Procedures ER Provider Diagnostic Interpretation: (CHEST FOR PE) ANGIO WITH CT DOSE: 501.15 mGy.cm HISTORY: Chest pain dyspnea TECHNIQUE: Multiaxial CT images of the chest were performed following the intravenous administration of contrast to evaluate the pulmonary arteries. Maximal intensity projection images were also obtained. A dose lowering technique was utilized adhering to the principles of ALARA. COMPARISON STUDY: 10/15/2017 FINDINGS: Study is positive for pulmonary emboli involving the right lower lobe pulmonary arterial supply. The remaining pulmonary vasculature enhances appropriately. Thoracic aorta is negative for aneurysm or dissection. No evidence for focal infiltrate. Masslike changes of the lungs and spine are again noted consistent with the patient's known metastatic disease. IMPRESSION: 1. Study is positive for pulmonary embolus involving the right lower lobe pulmonary arterial vasculature.. 2. Multiple pulmonary nodules and lesions of the thoracic spine consistent with the patient is known metastatic bone and pulmonary disease. 3. No evidence for focal infiltrate. The above report was generated using voice recognition software. It may contain grammatical, syntax or spelling errors. Electronically signed by: Yaron Montaño M.D. 10/29/2017 5:29 PM Dictated Date/Time: 10/29/2017 5:26 PM The status of this report is Signed. Draft = Not yet reviewed or approved by Radiologist. Signed = Reviewed and approved by Radiologist. <AttendingPhy></AttendingPhy> <FamilyPhy>Skyler Mei MD</FamilyPhy> < PrimaryPhy>Anuj Block M.D.</PrimaryPhy> <UnitNumber>[id number]</UnitNumber > <VisitNumber>[id number]</VisitNumber> <PatientName>RITESH MARTEL</PatientName > <DateOfBirth>1965</DateOfBirth> <Location>[facility]</Location> <ServiceDate> 10/29/17</ServiceDate> <MNE>ESINDI</MNE> <OrderingPhy>Dalila Duval MD</ OrderingPhy Laboratory Results 10/29/17 15:40 Red Blood Count 4.39, Mean Corpuscular Volume 86.6, Mean Corpuscular Hemoglobin 28.2, Mean Corpuscular Hemoglobin Concent 32.6, Mean Platelet Volume 9.1, Neutrophils (%) (Auto) 69.0, Lymphocytes (%) (Auto) 23.5, Monocytes (%) (Auto) 5.7, Eosinophils (%) (Auto) 0.2, Basophils (%) (Auto) 0.2, Neutrophils # (Auto) 3.02, Lymphocytes # (Auto) 1.03, Monocytes # (Auto) 0.25, Eosinophils # (Auto) 0.01, Basophils # (Auto) 0.01 10/29/17 15:40 Test 10/29/17 15:40 White Blood Count 4.38 K/uL (4.8-10.8) Red Blood Count 4.39 M/uL (4.2-5.4) Hemoglobin 12.4 g/dL (12.0-16.0) Hematocrit 38.0 % (37-47) Mean Corpuscular Volume 86.6 fL (80-100) Mean Corpuscular Hemoglobin 28.2 pg (25-34) Mean Corpuscular Hemoglobin Concent 32.6 g/dl (32-36) Platelet Count 317 K/uL (130-400) Mean Platelet Volume 9.1 fL (7.4-10.4) Neutrophils (%) (Auto) 69.0 % Lymphocytes (%) (Auto) 23.5 % Monocytes (%) (Auto) 5.7 % Eosinophils (%) (Auto) 0.2 % Basophils (%) (Auto) 0.2 % Neutrophils # (Auto) 3.02 K/uL (1.4-6.5) Lymphocytes # (Auto) 1.03 K/uL (1.2-3.4) Monocytes # (Auto) 0.25 K/uL (0.11-0.59) Eosinophils # (Auto) 0.01 K/uL (0-0.5) Basophils # (Auto) 0.01 K/uL (0-0.2) RDW Standard Deviation 55.3 fL (36.4-46.3) RDW Coefficient of Variation 17.5 % (11.5-14.5) Immature Granulocyte % (Auto) 1.4 % Immature Granulocyte # (Auto) 0.06 K/uL (0.00-0.02) Prothrombin Time 10.7 SECONDS (9.0-12.0) Prothromb Time International Ratio 1.0 (0.9-1.1) Activated Partial Thromboplast Time 21.0 SECONDS (21.0-31.0) Partial Thromboplastin Ratio 0.8 Anion Gap 11.0 mmol/L (3-11) Est Creatinine Clear Calc Drug Dose 85.1 ml/min Estimated GFR () 93.3 Estimated GFR (Non- 80.5 BUN/Creatinine Ratio 25.7 (10-20) Calcium Level 8.3 mg/dl (8.5-10.1) Total Bilirubin 0.8 mg/dl (0.2-1) Aspartate Amino Transf (AST/SGOT) 18 U/L (15-37) Alanine Aminotransferase (ALT/SGPT) 29 U/L (12-78) Alkaline Phosphatase 216 U/L (45-117) Troponin I < 0.015 ng/ml (0-0.045) Total Protein 7.3 gm/dl (6.4-8.2) Albumin 3.2 gm/dl (3.4-5.0) Globulin 4.1 gm/dl (2.5-4.0) Albumin/Globulin Ratio 0.8 (0.9-2) Thyroid Stimulating Hormone (TSH) 2.680 uIu/ml (0.300-4.500) Medications Administered Medications (Trade) Dose Ordered Sig/Radha Route Start Time Stop Time Status Last Admin Dose Admin Nystatin (Mycostatin Susp) 5 ml NOW STAT PO 10/29/17 15:38 10/29/17 15:40 DC 10/29/17 16:07 5 ML ECG Per My Interpretation Indication: palpitations Rate (beats per minute): 113 Rhythm: sinus tachycardia Findings: no acute ischemic change, no ectopy Comparison ECG Date: 05/13/17 Change: no significant change Medical Decision Prior records/ancillary studies reviewed. Triage Nursing notes reviewed. Additional history obtained from from the patient. The patient's history was concerning for palpitations. Differential diagnosis: Etiologies such as premature contractions, electrolyte abnormality, cardiac dysrhythmia, thyroid dysfunction, pulmonary embolism, infection, gastrointestinal, as well as others were entertained. Physical examination: Sinus tachycardia. ER treatment provided: CBC, CMP, TSH, EKG , CTA was ordered On reassessment the patient felt better. Diagnostic interpretation by me: Cardiac monitoring revealed sinus tachycardia. The electrocardiogram was negative for pathologic change. It revealed sinus tachycardia The labs were unremarkable Imaging studies: CTA as above Consultation: A consultation was placed with the [facility] hospitalist. The case was discussed and diagnostics were reviewed. The patient was evaluated in the ER for further treatment. This appears to be consistent with Pulmonary embolism. By the evaluation outlined above emergent etiologies such as electrolyte abnormality, cardiac dysrhythmia, thyroid dysfunction, pulmonary embolism, infection, as well as others were deemed relatively unlikely. 52-year-old female with extensive metastatic colon carcinoma presented with complaints of new onset palpitations and dizziness that started this morning. She was diagnosed with PE in August and is currently on Lovenox. The patient had received chemotherapy and radiation therapy and was due for radiation therapy later tonight. She stated that she was very tired , had decreased by mouth intake and had missed [address] chest was obtained for pulmonary embolism which revealed pulmonary embolus involving the right lower lobe pulmonary arterial vasculature and multiple pulmonary nodules and lesions of the thoracic spine consistent with known metastatic bone and pulmonary disease. Orthostatic vitals were obtained and her blood pressure dropped considerably to 66/50, she was immediately given a bolus of NSS and her blood pressure improved. Hospitalist were consulted for admission due to symptomatic palpitations. Impression Primary Impression: Tachycardia Additional Impression: Pulmonary embolism Departure Information Referrals Anuj Block M.D. (PCP) Patient Instructions My [facility] Resident Tracking Resident Involvement: Resident Care Provided Care Provided: Adult ED Problem Qualifiers
[2017-10-29 16:23] LABS: ALBUMIN 3.2 gm/dl (3.4-5.0); ALT/SGPT 29 U/L (12-78); AST/SGOT 18 U/L (15-37); BLOOD UREA NITROGEN 21 mg/dl (7-18); CALCIUM 8.3 mg/dl (8.5-10.1); CARBON DIOXIDE 23 mmol/L (21-32); CREATININE 0.84 mg/dl (0.60-1.20); GLUCOSE 137 mg/dl (70-99); SODIUM 132 mmol/L (136-145)
[2017-10-29 16:34] LABS: ALKALINE PHOSPHATASE 216 U/L (45-117); TOTAL PROTEIN 7.3 gm/dl (6.4-8.2)
--- NOTE | 2017-10-29 17:30 | DIAGNOSTIC IMAGING REPORT ---
(CHEST FOR PE) ANGIO WITH CT DOSE: 501.15 mGy.cm HISTORY: Chest pain dyspnea TECHNIQUE: Multiaxial CT images of the chest were performed following the intravenous administration of contrast to evaluate the pulmonary arteries. Maximal intensity projection images were also obtained. A dose lowering technique was utilized adhering to the principles of ALARA. COMPARISON STUDY: 10/15/2017 FINDINGS: Study is positive for pulmonary emboli involving the right lower lobe pulmonary arterial supply. The remaining pulmonary vasculature enhances appropriately. Thoracic aorta is negative for aneurysm or dissection. No evidence for focal infiltrate. Masslike changes of the lungs and spine are again noted consistent with the patient's known metastatic disease. IMPRESSION: 1. Study is positive for pulmonary embolus involving the right lower lobe pulmonary arterial vasculature.. 2. Multiple pulmonary nodules and lesions of the thoracic spine consistent with the patient is known metastatic bone and pulmonary disease. 3. No evidence for focal infiltrate. The above report was generated using voice recognition software. It may contain grammatical, syntax or spelling errors. Electronically signed by: Yaron Montaño M.D. 10/29/2017 5:29 PM Dictated Date/Time: 10/29/2017 5:26 PM
[2017-10-29] MEDS ORDERED: PROC1TAB5 PO (17:38)
[2017-10-29] MEDS ORDERED: ENOX100I INJ (17:38)
[2017-10-29] MEDS ORDERED: PRLSR20 PO (17:38)
[2017-10-29] MEDS ORDERED: DIPH-416 PO (17:38)
[2017-10-29] MEDS ORDERED: MRPSR30 PO (17:38)
[2017-10-29] MEDS ORDERED: OXYB5TAB21 PO (17:38)
[2017-10-29] MEDS ORDERED: DULO60CA44 PO (17:38)
[2017-10-29] MEDS ORDERED: FLUT0.15 NEB (17:38)
[2017-10-29] MEDS ORDERED: IMD/2 PO (17:38)
[2017-10-29] MEDS ORDERED: METO25TA3 PO ×2 (17:38)
[2017-10-29] MEDS ORDERED: DXM/4 PO (17:38)
[2017-10-29] MEDS ORDERED: OXYC-57 PO (17:38)
[2017-10-29] MEDS ORDERED: ALBUAER INH (17:38)
[2017-10-29] MEDS ORDERED: TRAZ50TA35 PO (17:38)
[2017-10-29] MEDS ORDERED: ONDA8TAB6 PO (17:38)
[2017-10-29] MEDS ORDERED: IPRASOL4 INH (17:38)
[2017-10-29] MEDS ORDERED: MOME100A INH (17:38)
--- NOTE | 2017-10-29 18:13 | EMERGENCY ROOM VISIT NOTE ---
History Report prepared by Vasiliy: Manny Blanton Under the Supervision of: Dr. Valeriy Hardy M.D. First contact with patient: 14:58 Chief Complaint: TACHYCARDIA Stated Complaint: U Nursing Triage Summary: Patient erwin moss sent from [facility]. Patient was there today for raditaion treatment. When patient arrived to [facility] she felt like her heart was racing and when they took her VS her HR was around 120. They did not want to do the radiation with her heart rate that high and they brought patient to ED. Patient reports that she was also having chest pain and shortness of breath. The chest pain and shortness of breath have resolved at this time. Currently also doing chemo. Reports that she has been feeling tired and slept almost all weekend. History of Present Illness The patient is a 52 year old female with metastatic colon cancer and a history of a pulmonary embolism who presents to the Emergency Room with complaints of an episode of tachycardia that occurred around 3 and a half hours ago. The patient says that when she woke up this morning, she felt dizzy. The dizziness then worsened when she was at the [facility], and she was noted to be tachycardic. The patient adds that she started to have an episode of left-sided sharp chest pain and shortness of breath, which has since resolved. The patient was then sent here for evaluation. The patient denies any fevers, chills, or leg swelling. She says that she was diagnosed with the pulmonary embolism in August. She stated that her heart rate was in the 130s at [place]. She was seen by cardiology and placed on beta-blockers. She says that she felt "wiped out" after chemotherapy last week, so she missed 2 doses of her Lovenox as well as 2 evening doses of her Metoprolol over the past 2 days. The patient states that she did take her Lovenox this morning. She notes a history of asthma. Source of History: patient Onset: 3 and a half hours ago Position: other (global - tachycardia) Quality: other (heart rate in 1-teens) Timing: other (episode) Associated Symptoms: + chest pain, + SOB, No fevers, No chills Note: Associated symptoms: Dizziness. Denies leg swelling. Review of Systems See HPI for pertinent positives & negatives. A total of 10 systems reviewed and were otherwise negative. Past Medical & Surgical Medical Problems: (1) Metastatic colon cancer in female Family History Patient reports no known family medical history. Social History Smoking Status: Never Smoker Alcohol Use: none Drug Use: none Marital Status: single Housing Status: lives alone Occupation Status: employed Current/Historical Medications Scheduled Dexamethasone (Decadron), 4 MG PO BID Duloxetine Hcl (Cymbalta), 60 MG PO DAILY Enoxaparin (Lovenox), 90 MG INJ Q12 Fluticasone Propionate (Nasal) (Flonase Allergy Relief), 1 SPRAY NEB BID Metoprolol Succ (Toprol Xl) (Toprol-Xl), 25 MG PO QAM Metoprolol Succ (Toprol Xl) (Toprol-Xl), 12.5 MG PO QPM Mometasone Furoate-Formoterol (Dulera 100/5 Mcg), 2 PUFFS INH BID Morphine Sulfate (Morphine Sulfate ER), 30 MG PO Q12 Omeprazole (Prilosec), 20 MG PO DAILY Oxybutynin Chloride (Ditropan Xl), 5 MG PO DAILY Scheduled PRN Albuterol Sulfate (Proventil Hfa), 2 PUFFS INH Q4 PRN for SOB/Wheezing Diphenoxylate/Atropine (Lomotil), 1 TAB PO QID PRN for Diarrhea Ipratropium-Albuterol (Duoneb), 1 TREATMENT INH Q4H PRN for SOB/Wheezing Loperamide Hcl (Imodium), 2 MG PO UD PRN for Diarrhea Ondansetron Hcl (Zofran), 8 MG PO Q8 PRN for Nausea Oxycodone/Acetaminophen 5MG/325MG (Percocet 5MG/325MG), 1 TABLET PO Q4H PRN for Pain Prochlorperazine Maleate (Compazine), 10 MG PO Q6H PRN for Nausea Trazodone Hcl (Trazodone), 50 MG PO QPM PRN for Sleep Allergies Coded Allergies: Sulfa Antibiotics (Verified Allergy, Intermediate, SOB and hives, 10/29/17) Physical Exam Vital Signs Date Time Temp Pulse Resp B/P (MAP) Pulse Ox O2 Delivery O2 Flow Rate FiO2 10/29/17 17:51 113 25 111/82 97 Room Air 10/29/17 16:07 113 119/81 99 Room Air 10/29/17 14:45 97 Room Air 10/29/17 14:42 109 10/29/17 14:41 97 Room Air 10/29/17 14:39 37.0 115 14 117/90 98 Room Air Physical Exam Constitutional: Vital signs reviewed. Eyes: Pupils are equal round reactive to light. Conjunctiva are noninjected. ENT: Thrush to the tongue and posterior oropharynx. Mucous membranes are moist. Neck supple without meningeal signs. Respiratory: Clear to auscultation bilaterally. Breath sounds are equal bilaterally. Cardiovascular: Power port in right chest wall. Tachycardic heart rate in the 110's. No rubs or gallops. GI: Soft, nondistended and nontender. Bowel sounds are present. Musculoskeletal: No peripheral edema. No lower extremity tenderness. Integumentary: No cyanosis. Neurological: The patient is awake and alert. No focal deficits. Psychiatric: Normal affect. Medical Decision & Procedures ER Provider Diagnostic Interpretation: CT results as stated below per my review and radiologist interpretation. (CHEST FOR PE) ANGIO WITH CT DOSE: 501.15 mGy.cm HISTORY: Chest pain dyspnea TECHNIQUE: Multiaxial CT images of the chest were performed following the intravenous administration of contrast to evaluate the pulmonary arteries. Maximal intensity projection images were also obtained. A dose lowering technique was utilized adhering to the principles of ALARA. COMPARISON STUDY: 10/15/2017 FINDINGS: Study is positive for pulmonary emboli involving the right lower lobe pulmonary arterial supply. The remaining pulmonary vasculature enhances appropriately. Thoracic aorta is negative for aneurysm or dissection. No evidence for focal infiltrate. Masslike changes of the lungs and spine are again noted consistent with the patient's known metastatic disease. IMPRESSION: 1. Study is positive for pulmonary embolus involving the right lower lobe pulmonary arterial vasculature.. 2. Multiple pulmonary nodules and lesions of the thoracic spine consistent with the patient is known metastatic bone and pulmonary disease. 3. No evidence for focal infiltrate. The above report was generated using voice recognition software. It may contain grammatical, syntax or spelling errors. Electronically signed by: Yaron Montaño M.D. 10/29/2017 5:29 PM Dictated Date/Time: 10/29/2017 5:26 PM Laboratory Results 10/29/17 15:40 Red Blood Count 4.39, Mean Corpuscular Volume 86.6, Mean Corpuscular Hemoglobin 28.2, Mean Corpuscular Hemoglobin Concent 32.6, Mean Platelet Volume 9.1, Neutrophils (%) (Auto) 69.0, Lymphocytes (%) (Auto) 23.5, Monocytes (%) (Auto) 5.7, Eosinophils (%) (Auto) 0.2, Basophils (%) (Auto) 0.2, Neutrophils # (Auto) 3.02, Lymphocytes # (Auto) 1.03, Monocytes # (Auto) 0.25, Eosinophils # (Auto) 0.01, Basophils # (Auto) 0.01 10/29/17 15:40 Test 10/29/17 15:40 White Blood Count 4.38 K/uL (4.8-10.8) Red Blood Count 4.39 M/uL (4.2-5.4) Hemoglobin 12.4 g/dL (12.0-16.0) Hematocrit 38.0 % (37-47) Mean Corpuscular Volume 86.6 fL (80-100) Mean Corpuscular Hemoglobin 28.2 pg (25-34) Mean Corpuscular Hemoglobin Concent 32.6 g/dl (32-36) Platelet Count 317 K/uL (130-400) Mean Platelet Volume 9.1 fL (7.4-10.4) Neutrophils (%) (Auto) 69.0 % Lymphocytes (%) (Auto) 23.5 % Monocytes (%) (Auto) 5.7 % Eosinophils (%) (Auto) 0.2 % Basophils (%) (Auto) 0.2 % Neutrophils # (Auto) 3.02 K/uL (1.4-6.5) Lymphocytes # (Auto) 1.03 K/uL (1.2-3.4) Monocytes # (Auto) 0.25 K/uL (0.11-0.59) Eosinophils # (Auto) 0.01 K/uL (0-0.5) Basophils # (Auto) 0.01 K/uL (0-0.2) RDW Standard Deviation 55.3 fL (36.4-46.3) RDW Coefficient of Variation 17.5 % (11.5-14.5) Immature Granulocyte % (Auto) 1.4 % Immature Granulocyte # (Auto) 0.06 K/uL (0.00-0.02) Prothrombin Time 10.7 SECONDS (9.0-12.0) Prothromb Time International Ratio 1.0 (0.9-1.1) Activated Partial Thromboplast Time 21.0 SECONDS (21.0-31.0) Partial Thromboplastin Ratio 0.8 Anion Gap 11.0 mmol/L (3-11) Est Creatinine Clear Calc Drug Dose 85.1 ml/min Estimated GFR () 93.3 Estimated GFR (Non- 80.5 BUN/Creatinine Ratio 25.7 (10-20) Calcium Level 8.3 mg/dl (8.5-10.1) Total Bilirubin 0.8 mg/dl (0.2-1) Aspartate Amino Transf (AST/SGOT) 18 U/L (15-37) Alanine Aminotransferase (ALT/SGPT) 29 U/L (12-78) Alkaline Phosphatase 216 U/L (45-117) Troponin I < 0.015 ng/ml (0-0.045) Total Protein 7.3 gm/dl (6.4-8.2) Albumin 3.2 gm/dl (3.4-5.0) Globulin 4.1 gm/dl (2.5-4.0) Albumin/Globulin Ratio 0.8 (0.9-2) Thyroid Stimulating Hormone (TSH) 2.680 uIu/ml (0.300-4.500) Laboratory results as reviewed by me. Medications Administered Medications (Trade) Dose Ordered Sig/Radha Route Start Time Stop Time Status Last Admin Dose Admin Nystatin (Mycostatin Susp) 5 ml NOW STAT PO 10/29/17 15:38 10/29/17 15:40 DC 10/29/17 16:07 5 ML ECG Per My Interpretation Indication: palpitations Rate (beats per minute): 113 Rhythm: sinus tachycardia Findings: no ectopy, other (no ST elevations, axis is -15) ED Course 1502: The patient was evaluated in room C4 by the resident, Dr. Duval. A complete history and physical exam was performed. 153: The patient was evaluated in room C4 by me. A complete history and physical exam was performed. 1538: Ordered Mycostatin Susp 5 ml PO. 1805: The patient was reevaluated and is resting comfortably. The patient expressed understanding and agreement of the treatment plan. The patient will be evaluated for further treatment. 1806: I spoke with Dr. Morgan of [facility] internal medicine. We discussed the patient and her results. The patient will be further evaluated by Dr. Morgan. Medical Decision Resident Physician Supervision Note: I did evaluate and examine this patient myself. I did guide management for the patient. I agree with the resident's (Dr. Duval) assessment as discussed. Please see the resident's dictation for further details. This is a 52-year-old female presents with chest pain and dizziness with tachycardia. Differential diagnosis includes pulmonary embolism, pulmonary infarct, medication noncompliance, pneumonia, sepsis. I did perform a limited focused review of portions of the patient's old chart on the electronic medical record. The patient has had no recent pertinent visits to this hospital. I did evaluate the patient as noted above. She has thrush and was treated with nystatin. She also is complaining of dizziness and tachycardia. She did not take her Lovenox for 2 days. Her power port was accessed. The patient was placed on a continuous classroom monitor. I did order and personally review the patient's 12-lead EKG as described above. I did order and review the patient's blood work as noted in the electronic medical record. I did order a CT of the chest. I did review the images myself as well as the radiology report as described above. She does have a pulmonary embolus. On reassessment the patient is still dizzy and symptomatic with tachycardia. She will be hospitalized. The case was discussed with the hospitalist and manager rn case. Medication Reconcilliation Current Medication List: was personally reviewed by me Blood Pressure Screening Patient's blood pressure: Normal blood pressure Consults Time Called: 1800 Consulting Physician: Dr. Morgan - [facility] logistics technician Returned Call: [address] Morgan of [facility] internal medicine. We discussed the patient and her results. The patient will be further evaluated by Dr. Morgan. Impression Primary Impression: Pulmonary embolism Additional Impression: Tachycardia Scribe Attestation The scribe's documentation has been prepared under my direct and personally reviewed by me in its entirety. I confirm that the note above accurately reflects all work, treatment, procedures, and medical decision making performed by me. Departure Information Dispostion Being Evaluated By Hospitalist Referrals Anuj Block M.D. (PCP) Patient Instructions [facility] Problem Qualifiers Primary Impression: Pulmonary embolism Pulmonary embolism type: other Chronicity: acute
[2017-10-29] MEDS ORDERED: SODIUM CHLORIDE 0.9% 1000ML 1,000 ML IV SCH (18:45)
--- NOTE | 2017-10-29 19:21 | History and Physical ---
History & Physical Date & Time of Service: Oct 29, 2017 at 19:21 . Chief Complaint: weakness, palpitations . Primary Care Physician: Anuj Block M.D. . History of Present Illness Source: patient, clinic records, hospital records 52-year-old female followed by Dr. Block for Family Medicine and Dr. Mei for Hematology/Oncology. Diagnosed with colon adenocarcinoma in November 2016 treated with chemotherapy followed by surgical resection in April 2017. Metastatic disease to multiple skeletal sites (right acetabulum, right iliac crest, left humerus, lumbar spine), liver, lung, left ovary and pelvic sidewall. Diagnosed with pulmonary embolism right lower lobe at [facility] in August 2017. Treatment with subcutaneous enoxaparin was initiated and continued as outpatient. Has been tachycardic over the past several months. Echocardiogram in August demonstrated normal left ventricular wall motion and function, no significant pericardial effusion. Started on metoprolol. Receiving chemotherapy under the direction of Dr. Mei in radiation therapy with Dr. Anais Rincon. Received chemotherapy over the past few days. Experienced malaise and nausea. Slept much of the time and had poor p.o. intake. She missed a few doses of some of her medications, including metoprolol, dexamethasone, and enoxaparin. Today she was scheduled for radiation therapy. She was very weak and lightheaded when she stood up and experienced palpitations. Symptoms associated with some midsternal chest pressure and dyspnea. No pleuritic chest pain. No lower extremity edema or pain. No fever, cough, or other symptoms suggestive of infection. Went to radiation therapy as scheduled; found to be tachycardic and referred to the ED for evaluation. . 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 Family History FATHER Heart disease Multiple myeloma GRANDFATHER Heart disease GRANDMOTHER Breast cancer SISTER Heart disease MOTHER Thyroid disease Hypertension Social History Smoking Status: Never Smoker Alcohol Use: none Drug Use: none Marital Status: single Occupational Status: employed Allergies Coded Allergies: Sulfa Antibiotics (Verified Allergy, Severe, SOB and hives, 10/29/17) Home Medications Scheduled Dexamethasone (Decadron), 4 MG PO BID Duloxetine Hcl (Cymbalta), 60 MG PO DAILY Enoxaparin (Lovenox), 90 MG INJ Q12 Fluticasone Propionate (Nasal) (Flonase Allergy Relief), 1 SPRAY NEB BID Metoprolol Succ (Toprol Xl) (Toprol-Xl), 25 MG PO QAM Metoprolol Succ (Toprol Xl) (Toprol-Xl), 12.5 MG PO QPM Mometasone Furoate-Formoterol (Dulera 100/5 Mcg), 2 PUFFS INH BID Morphine Sulfate (Morphine Sulfate ER), 30 MG PO Q12 Omeprazole (Prilosec), 20 MG PO DAILY Oxybutynin Chloride (Ditropan Xl), 5 MG PO DAILY Scheduled PRN Albuterol Sulfate (Proventil Hfa), 2 PUFFS INH Q4 PRN for SOB/Wheezing Diphenoxylate/Atropine (Lomotil), 1 TAB PO QID PRN for Diarrhea Ipratropium-Albuterol (Duoneb), 1 TREATMENT INH Q4H PRN for SOB/Wheezing Loperamide Hcl (Imodium), 2 MG PO UD PRN for Diarrhea Ondansetron Hcl (Zofran), 8 MG PO Q8 PRN for Nausea Oxycodone/Acetaminophen 5MG/325MG (Percocet 5MG/325MG), 1 TABLET PO Q4H PRN for Pain Prochlorperazine Maleate (Compazine), 10 MG PO Q6H PRN for Nausea Trazodone Hcl (Trazodone), 50 MG PO QPM PRN for Sleep Review of Systems Constitutional: + weight loss, No fever Eyes: No worsening of vision, No diplopia ENT: + problem reported (Oral thrush), No nasal symptoms, No sore throat Respiratory: + problem reported (as noted above in HPI) Cardiovascular: + problem reported (as noted above in HPI) Abdomen: + nausea, + constipation, No vomiting, No diarrhea, No GI bleeding Musculoskeletal: + joint pain (hip & back) Genitourinary - Female: No dysuria, No hematuria Neurologic: + problem reported (generalized weakness, no headaches, no focal neurologic symptoms) Hematologic / Lymphatic: + problem reported (some ecchymoses at site of Lovenox injections), No abnormal bleeding/bruising, No swollen lymph nodes Integumentary: No rash, No new/changing skin lesions Physical Exam Vital Signs Date Time Temp Pulse Resp B/P (MAP) Pulse Ox O2 Delivery O2 Flow Rate FiO2 10/29/17 18:20 130 119/87 99 Room Air 10/29/17 18:16 114 107/81 119 114/87 140 66/50 10/29/17 17:51 113 25 111/82 97 Room Air 10/29/17 16:07 113 119/81 99 Room Air 10/29/17 14:45 97 Room Air 10/29/17 14:42 109 10/29/17 14:41 97 Room Air 10/29/17 14:39 37.0 115 14 117/90 98 Room Air General Appearance: no apparent distress, + obese Head: normocephalic, atraumatic Eyes: normal inspection, PERRL, EOMI, sclerae normal, + pertinent finding ( conjunctivae clear) ENT: hearing grossly normal, + pertinent finding (oral thrush) Neck: supple, no adenopathy, thyroid normal, trachea midline Respiratory/Chest: lungs clear, no accessory muscle use, + pertinent finding ( vascular access device with right infraclavicular subcutaneous reservoir) Cardiovascular: regular rate, rhythm, no edema, no gallop, no JVD, no murmur Abdomen/GI: normal bowel sounds, non tender, soft, no organomegaly Extremities/Musculoskelatal: no calf tenderness, + pertinent finding (no cyanosis; no digital clubbing) Neurologic/Psych: rivet spinner II-XII nml as tested (PERRL, EOMI, no facial palsy, no dysarthria), no motor/sensory deficits (motor strength upper and lower extremities grossly intact), alert, normal mood/affect, oriented x 3 Skin: normal color, warm/dry, no rash Lymphatic: no adenopathy (cervical) Diagnostics Laboratory Results Results Past 24 Hours Test 10/29/17 15:40 Range/Units White Blood Count 4.38 4.8-10.8 K/uL Red Blood Count 4.39 4.2-5.4 M/uL Hemoglobin 12.4 12.0-16.0 g/dL Hematocrit 38.0 37-47 % Mean Corpuscular Volume 86.6 80-100 fL Mean Corpuscular Hemoglobin 28.2 25-34 pg Mean Corpuscular Hemoglobin Concent 32.6 32-36 g/dl Platelet Count 317 130-400 K/uL Mean Platelet Volume 9.1 7.4-10.4 fL Neutrophils (%) (Auto) 69.0 % Lymphocytes (%) (Auto) 23.5 % Monocytes (%) (Auto) 5.7 % Eosinophils (%) (Auto) 0.2 % Basophils (%) (Auto) 0.2 % Neutrophils # (Auto) 3.02 1.4-6.5 K/uL Lymphocytes # (Auto) 1.03 1.2-3.4 K/uL Monocytes # (Auto) 0.25 0.11-0.59 K/uL Eosinophils # (Auto) 0.01 0-0.5 K/uL Basophils # (Auto) 0.01 0-0.2 K/uL RDW Standard Deviation 55.3 36.4-46.3 fL RDW Coefficient of Variation 17.5 11.5-14.5 % Immature Granulocyte % (Auto) 1.4 % Immature Granulocyte # (Auto) 0.06 0.00-0.02 K/uL Prothrombin Time 10.7 9.0-12.0 SECONDS Prothromb Time International Ratio 1.0 0.9-1.1 Activated Partial Thromboplast Time 21.0 21.0-31.0 SECONDS Partial Thromboplastin Ratio 0.8 Sodium Level 132 136-145 mmol/L Potassium Level 4.0 3.5-5.1 mmol/L Chloride Level 98 98-107 mmol/L Carbon Dioxide Level 23 21-32 mmol/L Anion Gap 11.0 3-11 mmol/L Blood Urea Nitrogen 21 7-18 mg/dl Creatinine 0.84 0.60-1.20 mg/dl Est Creatinine Clear Calc Drug Dose 85.1 ml/min Estimated GFR () 93.3 Estimated GFR (Non- 80.5 BUN/Creatinine Ratio 25.7 10-20 Random Glucose 137 70-99 mg/dl Calcium Level 8.3 8.5-10.1 mg/dl Total Bilirubin 0.8 0.2-1 mg/dl Aspartate Amino Transf (AST/SGOT) 18 15-37 U/L Alanine Aminotransferase (ALT/SGPT) 29 12-78 U/L Alkaline Phosphatase 216 45-117 U/L Troponin I < 0.015 0-0.045 ng/ml Total Protein 7.3 6.4-8.2 gm/dl Albumin 3.2 3.4-5.0 gm/dl Globulin 4.1 2.5-4.0 gm/dl Albumin/Globulin Ratio 0.8 0.9-2 Thyroid Stimulating Hormone (TSH) 2.680 0.300-4.500 uIu/ml Diagnostic Radiology (CHEST FOR PE) ANGIO WITH FINDINGS: Study is positive for pulmonary emboli involving the right lower lobe pulmonary arterial supply. The remaining pulmonary vasculature enhances appropriately. Thoracic aorta is negative for aneurysm or dissection. No evidence for focal infiltrate. Masslike changes of the lungs and spine are again noted consistent with the patient's known metastatic disease. IMPRESSION: 1. Study is positive for pulmonary embolus involving the right lower lobe pulmonary arterial vasculature.. 2. Multiple pulmonary nodules and lesions of the thoracic spine consistent with the patient is known metastatic bone and pulmonary disease. 3. No evidence for focal infiltrate. . The above report was generated using voice recognition software. It may contain grammatical, syntax or spelling errors. Electronically signed by: Yaron Montaño M.D. 10/29/2017 5:29 PM Dictated Date/Time: 10/29/2017 5:26 PM EKG EKG performed at 1438 reviewed and demonstrated sinus tachycardia at 110/minute , no acute ST or T-wave abnormalities. . Impression Assessment and Plan ORTHOSTATIC HYPOTENSION / TACHYCARDIA Patient experienced weakness, orthostatic lightheadedness, palpitations, mild chest discomfort, dyspnea this morning. Noted be tachycardic in radiation therapy and referred to ED. Evaluation for pulmonary embolism as noted below. Prescribed metoprolol for persistent tachycardia that has been present for several months. Echocardiogram in August showed normal left ventricular function, no pericardial effusion. Missed doses of metoprolol and dexamethasone over the weekend because of her nausea and malaise associated with chemotherapy. Markedly orthostatic in the ED with systolic blood pressures fallen from 107 supine to 66 standing and heart rate rising from 114 supine to 140 standing. No signs of sepsis. No signs of GI bleeding. Suspect that symptoms today due to combination of volume depletion from decreased oral intake in conjunction with missed doses of metoprolol and dexamethasone. Received fluid resuscitation with normal saline in the ED. Continue IV fluids. Resume dexamethasone. Resume metoprolol at reduced dose. Consider adrenal insufficiency; check 1-24 ACTH stim test. Check repeat orthostatic VS in a.m. PULMONARY EMBOLISM (present on admission) Diagnosed with right lower lobe pulmonary embolism in August 2017. Has been receiving subcutaneous enoxaparin since then. Missed 2 doses of enoxaparin over the weekend. CTA of chest today demonstrates right lower lobe pulmonary emboli. Images from [facility] in August compared to images performed here today were similar in appearance/location. Doubt new/acute pulmonary embolism. No apparent indication for IVC filter. Continue subcutaneous enoxaparin. Check venous duplex lower extremities to assess for DVT. METASTATIC COLON CANCER Adenocarcinoma of colon with metastases to lung, liver, ovary, skeleton. Management per Drs. Mei and Anais Rincon. Continue usual analgesics for skeletal metastases. VTE PROPHYLAXIS Continue enoxaparin at therapeutic dosing for recently diagnosed pulmonary embolism. RESUSCITATION STATUS Discussed with patient. She has a living will. She would like resuscitation attempted in the event of a cardiopulmonary arrest if there is a reasonable chance of a meaningful recovery, but does not want prolonged extraordinary measures if prognosis is poor. Therefore, code status = "Level 1" (full resuscitation). DISPOSITION Admit to Telemetry Unit. Expected discharge to home. Family Medicine follow-up with Dr. Block. Medical Oncology follow-up with Dr. Mei. Radiation Oncology follow-up with Dr. Anais Rincon. . VTE Prophylaxis Risk Level: High Given or contraindicated: Enoxaparin (Lovenox)SQ Additional Copies To Skyler Mei MD; Veeral. Rincon MD
[2017-10-29 20:29] VITALS: BP 149/93; PULSE 110; TEMP 36.6; O2SAT 99; Ht 162.6 cm; Wt 84.3 kg
[2017-10-29] MEDS ORDERED: ALBUTEROL HFA 8 GM INHALER INH PRN (20:45)
[2017-10-29] MEDS ORDERED: OXYCODONE/ACETAMINOPHEN 5-325 TAB PO PRN (20:45)
[2017-10-29] MEDS ORDERED: PROCHLORPERAZINE MALEATE 10 MG TAB PO PRN (20:45)
[2017-10-29] MEDS ORDERED: ONDANSETRON 8 MG TAB PO PRN (20:45)
[2017-10-29] MEDS ORDERED: TRAZODONE HCL 50 MG TAB PO PRN (20:45)
[2017-10-29] MEDS ORDERED: ALBUT/IPRATROP 3MG/0.5MG NEB 3 ML VIAL INH PRN (20:45)
[2017-10-29] MEDS ORDERED: DEXAMETHASONE INJ 4 MG in SYRINGE 0 ML IV ONE (21:00)
[2017-10-29] MEDS: MoRPHine SULFATE CR 15 MG TAB (MS CONTIN) PO SCH (21:00)
--- NOTE | 2017-10-29 22:07 | DIAGNOSTIC IMAGING REPORT ---
VENOUS DOPPLER LWR EXT BILA HISTORY: Pain. Dyspnea. pulmonary embolism COMPARISON STUDY: None. FINDINGS: There is normal compressibility, flow, and augmentation within the bilateral lower extremity deep venous systems. IMPRESSION: No DVT within the right or left lower extremity. The above report was generated using voice recognition software. It may contain grammatical, syntax or spelling errors. Electronically signed by: Yaron Montaño M.D. 10/29/2017 10:06 PM Dictated Date/Time: 10/29/2017 10:05 PM
[2017-10-29] MEDS: ENOXAPARIN 100 MG/1ML SYR SQ SCH (22:29)
[2017-10-29] MEDS: FLUTICASONE PROPIONATE NA SPR 16 GM BTL SCH (22:30)
[2017-10-29] MEDS: NSS + 20MEQ KCL 1000ML 1,000 ML IV SCH (22:30)
[2017-10-29 23:49] VITALS: BP 113/76; PULSE 99; TEMP 36.8; O2SAT 97
[2017-10-30] VITALS (9 sets, daily range): BP systolic 103–154; BP diastolic 59–92; PULSE 79–120; TEMP 36.6–37.4; O2SAT 95–100
[2017-10-30] MEDS: NSS + 20MEQ KCL 1000ML 1,000 ML IV SCH ×4 (03:49→23:25)
[2017-10-30] MEDS: CLOTRIMAZOLE 10 MG TROCHE LOZ SCH ×5 (07:00→23:25)
[2017-10-30] MEDS ORDERED: COSYNTROPIN INJ 0.25 MCG in SYRINGE 4 ML IV ONE (08:00)
[2017-10-30] MEDS ORDERED: COSYNTROPIN INJ 250 MCG in SYRINGE 4 ML IV ONE (08:00)
[2017-10-30 08:11] LABS: HEMATOCRIT 31.8 % (37-47); HEMOGLOBIN 10.4 g/dL (12.0-16.0); IG# 0.04 K/uL (0.00-0.02); LYMPH % 37.2 %; LYMPH ABS # 1.07 K/uL (1.2-3.4); MEAN CELL VOLUME 86.4 fL (80-100); MEAN CORPUSCULAR HEMOGLOBIN 28.3 pg (25-34); MEAN CORPUSCULAR HGB CONC 32.7 g/dl (32-36); MONO % 5.9 %; MONO ABS # 0.17 K/uL (0.11-0.59); NEUT % 55.5 %; PLATELET COUNT 255 K/uL (130-400); RED CELL DISTRIBUTION WIDTH CV 17.6 % (11.5-14.5); RED CELL DISTRIBUTION WIDTH SD 55.6 fL (36.4-46.3); WHITE BLOOD COUNT 2.88 K/uL (4.8-10.8)
[2017-10-30 08:44] LABS: CALCIUM 7.6 mg/dl (8.5-10.1); CREATININE 0.5 mg/dl (0.60-1.20); POTASSIUM 4.1 mmol/L (3.5-5.1)
[2017-10-30] MEDS: MoRPHine SULFATE CR 15 MG TAB (MS CONTIN) PO SCH ×2 (09:00→21:00)
[2017-10-30] MEDS: NYSTATIN SUSP 500,000 U/5 ML UDC PO SCH ×4 (10:10→21:00)
[2017-10-30] MEDS: PANTOprazole SOD 40 MG TAB PO SCH (10:11)
[2017-10-30] MEDS: METOPROLOL SUCC 25MG EXT REL TAB PO SCH (10:11)
[2017-10-30] MEDS: OXYBUTYNIN CHLORIDE 5 MG TABCR PO SCH (10:11)
[2017-10-30] MEDS: ENOXAPARIN 100 MG/1ML SYR SQ SCH ×2 (10:11→21:01)
[2017-10-30] MEDS: DULOXETINE HCL 60 MG CAP PO SCH (10:11)
[2017-10-30] MEDS: FLUTICASONE PROPIONATE NA SPR 16 GM BTL SCH ×2 (10:11→21:00)
[2017-10-30] MEDS: DEXAMETHASONE 4 MG TAB PO SCH ×2 (10:11→21:03)
[2017-10-30] MEDS ORDERED: LOPERAMIDE HCL 2 MG CAP PO PRN (12:15)
[2017-10-30] MEDS: CALCIUM CARBONATE 500 MG CHEWABLE PO PRN (15:37)
[2017-10-30] MEDS: RASPBERRY SYRUP 5 ML UDP PO SCH ×2 (17:31→21:01)
[2017-10-30] MEDS: VANCOMYCIN HCL 125 MG/2.5ML SOLN PO SCH ×2 (17:31→21:01)
[2017-10-30] MEDS: GABAPENTIN 300 MG CAP PO SCH (21:02)
--- NOTE | 2017-10-30 21:39 | Medical Consult ---
Consultation Date of Consultation: Oct 30, 2017. Attending Physician: Lilian Holguin DO Reason for Consultation: metastatic colon cancer History of Present Illness 52 year old female with metastatic sigmoid colon cancer stage IV, with multiple metastases to lungs, liver, bone, left ovary and left pelvic side wall. She was initially diagnosed in 11/2016 and received neoadjuvant chemotherapy with FOLFOX and then underwent sigmoid colectomy in 04/2017 Pathology showed poorly differentiated invasive adenocarcinoma and carcinoma was present in 1 out of 17 Lymph nodes KRAS positive. She was on xeloda after she recovered from her partial colectomy. PET-CT scan in 07/2017 showed progression with metastases in bilateral lungs, in the liver and osseous metastases L1, vertebral body right iliac crest right acetabulum and left proximal humerus and also left adnexal mass. She underwent bilateral salpingo-oophorectomy and pathology was consistent with intestinal type adenocarcinoma involving the disrutped ovarian tissye and the left pelvic sidewall mass biopsy was positive for metastatic adenocarcinoma. She was started on palliative/second line chemotherapy with FOLFIRI. She has received 3 cycless so far. She also is on xgeva for bone mets. She had PE after surgery and has been on lovenox. She states that she had fatigue and nausea after last chemotherapy She also noticed dryness of her feet and tenderness of her feet She developed diarrhea today - C diff is positive She states that she missed 2 doses of her lovenox over the weekend Also had missed her metoprolol for 2 doses She states that pain has improved significantly She went for palliative RT yesterday and was sent to ER for tachycardia - patient had palpitations and lightheadedness She denies any syncope but states she felt lightheaded with standing and heart was racing She denies any fever or chills She has sweats sometimes She denies any cough She denies any increased TONG. Past Medical/Surgical History PMH/PSH: anxiety, Degenerative disc disease, allergic asthma, allergic rhinitis , metastatic colon cancer sigmoid partial colectomy port placement BSO and biopsy of left pelvic sidewall mass in 08/2017, she had a prior hysterectomy and tubal ligation Medical Problems: (1) Abdominal pain Status: Acute (2) Intra abdominal hemorrhage Status: Acute (3) Post-operative complication Status: Acute (4) Pulmonary embolism Permanent Comment: Right lower lobe August 2017 Status: Chronic (5) Tachycardia Status: Chronic Surgical Problems: (1) Status post placement of venous access device Status: Chronic Family History Breast cancer GRANDMOTHER Heart disease FATHER GRANDFATHER SISTER Hypertension MOTHER Multiple myeloma FATHER Thyroid disease MOTHER Social History Smoking Status: Never Smoker Alcohol Use: none Drug Use: none Marital Status: single Housing Status: lives alone Allergies Coded Allergies: Sulfa Antibiotics (Verified Allergy, Severe, SOB and hives, 10/29/17) Current Inpatient Medications Current Inpatient Medications Medications (Trade) Dose Ordered Sig/Radha Route Start Time Stop Time Status Last Admin Dose Admin Ioversol (Optiray 320) 125 ml UD PRN IV 10/29/17 15:45 11/02/17 15:44 Albuterol (Ventolin Hfa Inhaler) 2 puffs Q4 PRN INH 10/29/17 20:45 11/28/17 20:44 Dexamethasone (Decadron Tab) 4 mg BID PO 10/30/17 09:00 11/29/17 08:59 10/30/17 10:11 4 MG Duloxetine HCl (Cymbalta Cap) 60 mg DAILY PO 10/30/17 09:00 11/29/17 08:59 10/30/17 10:11 60 MG Enoxaparin Sodium (Lovenox Inj) 90 mg Q12 SQ 10/29/17 21:00 11/28/17 20:59 10/30/17 10:11 90 MG Fluticasone Propionate (Flonase Nasal [place]) 1 sprays BID NA 10/29/17 21:00 11/28/17 20:59 10/30/17 10:11 1 SPRAYS Albuterol/ Ipratropium (Duoneb) 3 ml Q4R PRN INH 10/29/17 20:45 11/28/17 20:44 Ondansetron HCl (Zofran Tab) 8 mg Q8 PRN PO 10/29/17 20:45 11/28/17 20:44 Oxybutynin Chloride (Ditropan-Xl Tab) 5 mg DAILY PO 10/30/17 09:00 11/29/17 08:59 10/30/17 10:11 5 MG Oxycodone/ Acetaminophen (Percocet 5-325mg Tab) 1 tab Q4H PRN PO 10/29/17 20:45 11/12/17 20:44 Prochlorperazine Maleate (Compazine Tab) 10 mg Q6H PRN PO 10/29/17 20:45 11/28/17 20:44 Trazodone HCl (Desyrel Tab) 50 mg QPM PRN PO 10/29/17 20:45 11/28/17 20:44 Miscellaneous Information (Order Awaiting Action) 1 ea QS N/A 10/30/17 00:00 11/29/17 00:00 Morphine Sulfate (Oramorph Sr Tab) 30 mg Q12 PO 10/29/17 21:00 11/12/17 20:59 Pantoprazole Sodium (Protonix Tab) 40 mg QAM PO 10/30/17 09:00 11/29/17 08:59 10/30/17 10:11 40 MG Metoprolol Succinate (Toprol Xl Tab) 12.5 mg QAM PO 10/30/17 09:00 11/29/17 08:59 10/30/17 10:11 12.5 MG Potassium Chloride/Sodium Chloride 1,000 ml @ 150 mls/hr Q6H40M IV 10/29/17 21:00 11/28/17 20:59 10/30/17 17:31 150 MLS/HR Nystatin (Mycostatin Susp) 5 ml QID PO 10/30/17 09:00 11/09/17 08:59 10/30/17 17:31 5 ML Clotrimazole (Mycelex 10MG Dick) 1 dick 5XDQ4H JEREMIAS 10/30/17 07:00 11/09/17 06:59 10/30/17 15:28 1 DICK Calcium Carbonate (Tums Chew Tab) 500 mg Q4H PRN PO 10/30/17 12:15 11/29/17 12:14 10/30/17 15:37 500 MG Vancomycin HCl (Vancomycin Oral Soln) 125 mg QID PO 10/30/17 17:00 11/13/17 16:59 10/30/17 17:31 125 MG Raspberry (Raspberry Syrup 5ml Cup) 5 ml QID PO 10/30/17 17:00 11/13/17 16:59 10/30/17 17:31 5 ML Gabapentin (Neurontin Cap) 300 mg BID PO 10/30/17 21:00 11/29/17 20:59 Multi-Ingredient Ointment (Desitin Oint) 0.5 gm UD PRN EXT 10/30/17 16:15 11/29/17 16:14 Review of Systems Constitutional: + sweats (sometimes, hot flashes), + weakness (generalized yesterday, feels improved now), + fatigue, No fever, No chills, No weight loss Eyes: No eye pain, No redness ENT: + sore throat (dryness yesterday), No unusual epistaxis, No nasal symptoms , No trouble swallowing Respiratory: + dyspnea on exertion (states same), No cough, No sputum, No wheezing, No shortness of breath, No dyspnea at rest, No hemoptysis Cardiovascular: + palpitations (see HPI), No chest pain, No edema Abdomen: + nausea, + diarrhea, No pain, No vomiting, No constipation, No GI bleeding Musculoskeletal: + problem reported (tenderness of her feet), No joint pain, No swelling Genitourinary - Female: No dysuria, No urinary frequency Neurologic: No numbness/tingling Endocrine: + fatigue Hematologic / Lymphatic: + problem reported (bruising on legs) Physical Exam Date Time Temp Pulse Resp B/P (MAP) Pulse Ox O2 Delivery O2 Flow Rate FiO2 10/30/17 20:17 37.1 114 19 131/59 (83) 95 10/30/17 16:00 Room Air 10/30/17 15:04 37.4 120 18 113/77 (89) 98 Room Air 10/30/17 12:00 Room Air 10/30/17 11:29 37.2 115 18 129/87 (101) 100 10/30/17 08:21 113 120/81 (94) 10/30/17 08:21 118 103/66 (78) 10/30/17 08:20 93 123/85 (98) 10/30/17 08:00 Room Air 10/30/17 07:23 37.0 96 18 122/81 (95) 96 Room Air 10/30/17 04:00 Room Air 10/30/17 03:36 37.2 104 20 103/70 (81) 98 Room Air 10/30/17 00:01 Room Air 10/29/17 23:49 36.8 99 20 113/76 (88) 97 Room Air General Appearance: WD/WN, no apparent distress (chronically ill), + obese Head: normocephalic, atraumatic Eyes: sclerae normal ENT: pharynx normal Neck: supple, no adenopathy, no JVD Respiratory/Chest: chest non-tender, lungs clear, normal breath sounds, no respiratory distress, no accessory muscle use Cardiovascular: no edema, + pertinent finding (tachycardic, regular ) Abdomen/GI: normal bowel sounds, non tender, soft, + pertinent finding ( nondistended, obese, no guarding or rebound) Extremities/Musculoskelatal: no calf tenderness, no pedal edema Neurologic/Psych: alert, normal mood/affect, oriented x 3 Skin: + pertinent finding (+ tenderness of the feet, slight erythema and mild peeling at the heels, few ecchymoses on her legs ) Laboratory Results Last 24 Hours Test 10/30/17 07:52 White Blood Count 2.88 K/uL Red Blood Count 3.68 M/uL Hemoglobin 10.4 g/dL Hematocrit 31.8 % Mean Corpuscular Volume 86.4 fL Mean Corpuscular Hemoglobin 28.3 pg Mean Corpuscular Hemoglobin Concent 32.7 g/dl Platelet Count 255 K/uL Mean Platelet Volume 9.0 fL Neutrophils (%) (Auto) 55.5 % Lymphocytes (%) (Auto) 37.2 % Monocytes (%) (Auto) 5.9 % Eosinophils (%) (Auto) 0.0 % Basophils (%) (Auto) 0.0 % Neutrophils # (Auto) 1.60 K/uL Lymphocytes # (Auto) 1.07 K/uL Monocytes # (Auto) 0.17 K/uL Eosinophils # (Auto) 0.00 K/uL Basophils # (Auto) 0.00 K/uL RDW Standard Deviation 55.6 fL RDW Coefficient of Variation 17.6 % Immature Granulocyte % (Auto) 1.4 % Immature Granulocyte # (Auto) 0.04 K/uL Sodium Level 135 mmol/L Potassium Level 4.1 mmol/L Chloride Level 104 mmol/L Carbon Dioxide Level 22 mmol/L Anion Gap 8.0 mmol/L Blood Urea Nitrogen 13 mg/dl Creatinine 0.50 mg/dl Est Creatinine Clear Calc Drug Dose 140.5 ml/min Estimated GFR () 129.9 Estimated GFR (Non- 112.1 BUN/Creatinine Ratio 25.1 Random Glucose 113 mg/dl Calcium Level 7.6 mg/dl Cortisol Response to Stimulation Cortisol Baseline Assessment & Plan 52 year old female with metastatic colon cancer with multiple mets involving the lungs, liver, bone CEA is improving S/P 3 cycles of palliative chemotherapy with FOLFIRI. CEA is improving. anemia and leukopenia: treatment related. Recommend check daily CBC w/ diff. Recommend give neupogen 480mcg SC if ANC drops to less [id number]. C difficile diarrhea: agree with oral vancomycin RLL PE: continue lovenox BID. She had recent PE after her surgery. continue this indefinitely in the setting of active metastatic cancer Patient reports that she missed 2 doses of lovenox over the weekend but she agree to continue with lovenox. Encourage compliance No DVT on her venous doppler. Zofran and compazine prn nausea HFS: moisturizers to hands and feet Cancer pain is improved. continue the oxycodone as needed for pain. Can discontinue MS Contin since she has stopped taking it since last Sunday and states that her pain is significantly improved and that she refused it. Follow up in the office upon discharge. Discussed with her that we will hold off on chemotherapy until C diff is resolved Thank you for consult Please call if questions
--- NOTE | 2017-10-30 22:40 | Progress Note ---
Medicine Progress Note Date & Time of Visit: Oct 30, 2017 at 16:04. Subjective 52 yo F presented with weakness and tachycardia post chemotherapy/XRT. -doing better since admission -denies pain except in her heels which are dry and cracked. -pain in heels described as a burning -denies chest pain or shortness of breath. -states that over the weekend she was getting chemo infusion and not feeling well as a result. Objective Last 8 Hrs Date Time Temp Pulse Resp B/P (MAP) Pulse Ox O2 Delivery O2 Flow Rate FiO2 10/30/17 15:04 37.4 120 18 113/77 (89) 98 Room Air 10/30/17 12:00 Room Air 10/30/17 11:29 37.2 115 18 129/87 (101) 100 10/30/17 08:21 113 120/81 (94) 10/30/17 08:21 118 103/66 (78) 10/30/17 08:20 93 123/85 (98) Physical Exam: GEN: WNWD, in no acute distress, alert and appropriate, no conversational dyspnea. Mentating very clearly, energetic. HEENT: NC/AT, normal sclerae, MMM CARDIO: tachy rate, S1/2 heard without m/g/r LUNGS: CTA bilaterally, no crackles, rales or wheezes, good diaphragmatic excursion ABD: soft, nontender, non-distended, no rebound or guarding, +BS EXTREMITY: RP and DP palpable 2+ bilat, no LE swelling or edema, extremities are warm and well-perfused NEURO: CN 2-12 grossly intact, no gross focal deficits. MUSC: 5/5 strength throughout, no gross focal deficits SKIN: warm and dry Laboratory Results: 10/30/17 07:52 Red Blood Count 3.68, Mean Corpuscular Volume 86.4, Mean Corpuscular Hemoglobin 28.3, Mean Corpuscular Hemoglobin Concent 32.7, Mean Platelet Volume 9.0, Neutrophils (%) (Auto) 55.5, Lymphocytes (%) (Auto) 37.2, Monocytes (%) (Auto) 5.9, Eosinophils (%) (Auto) 0.0, Basophils (%) (Auto) 0.0, Neutrophils # (Auto) 1.60, Lymphocytes # (Auto) 1.07, Monocytes # (Auto) 0.17, Eosinophils # (Auto) 0.00, Basophils # (Auto) 0.00 10/30/17 07:52 Test 10/29/17 15:40 10/30/17 07:52 Prothrombin Time 10.7 SECONDS (9.0-12.0) Prothromb Time International Ratio 1.0 (0.9-1.1) Activated Partial Thromboplast Time 21.0 SECONDS (21.0-31.0) Partial Thromboplastin Ratio 0.8 Total Bilirubin 0.8 mg/dl (0.2-1) Aspartate Amino Transf (AST/SGOT) 18 U/L (15-37) Alanine Aminotransferase (ALT/SGPT) 29 U/L (12-78) Alkaline Phosphatase 216 U/L (45-117) Troponin I < 0.015 ng/ml (0-0.045) Total Protein 7.3 gm/dl (6.4-8.2) Albumin 3.2 gm/dl (3.4-5.0) Globulin 4.1 gm/dl (2.5-4.0) Albumin/Globulin Ratio 0.8 (0.9-2) Thyroid Stimulating Hormone (TSH) 2.680 uIu/ml (0.300-4.500) White Blood Count 2.88 K/uL (4.8-10.8) Red Blood Count 3.68 M/uL (4.2-5.4) Hemoglobin 10.4 g/dL (12.0-16.0) Hematocrit 31.8 % (37-47) Mean Corpuscular Volume 86.4 fL (80-100) Mean Corpuscular Hemoglobin 28.3 pg (25-34) Mean Corpuscular Hemoglobin Concent 32.7 g/dl (32-36) Platelet Count 255 K/uL (130-400) Mean Platelet Volume 9.0 fL (7.4-10.4) Neutrophils (%) (Auto) 55.5 % Lymphocytes (%) (Auto) 37.2 % Monocytes (%) (Auto) 5.9 % Eosinophils (%) (Auto) 0.0 % Basophils (%) (Auto) 0.0 % Neutrophils # (Auto) 1.60 K/uL (1.4-6.5) Lymphocytes # (Auto) 1.07 K/uL (1.2-3.4) Monocytes # (Auto) 0.17 K/uL (0.11-0.59) Eosinophils # (Auto) 0.00 K/uL (0-0.5) Basophils # (Auto) 0.00 K/uL (0-0.2) RDW Standard Deviation 55.6 fL (36.4-46.3) RDW Coefficient of Variation 17.6 % (11.5-14.5) Immature Granulocyte % (Auto) 1.4 % Immature Granulocyte # (Auto) 0.04 K/uL (0.00-0.02) Anion Gap 8.0 mmol/L (3-11) Est Creatinine Clear Calc Drug Dose 140.5 ml/min Estimated GFR () 129.9 Estimated GFR (Non- 112.1 BUN/Creatinine Ratio 25.1 (10-20) Calcium Level 7.6 mg/dl (8.5-10.1) Cortisol Response to Stimulation Cortisol Baseline Date/Time Source Procedure Growth Status 10/30/17 14:15 Stool C.difficile Toxin B Gene (PCR) - Final Positive for C. difficile toxin B gene Complete Last 24 Hours Test 10/30/17 07:52 White Blood Count 2.88 K/uL Red Blood Count 3.68 M/uL Hemoglobin 10.4 g/dL Hematocrit 31.8 % Mean Corpuscular Volume 86.4 fL Mean Corpuscular Hemoglobin 28.3 pg Mean Corpuscular Hemoglobin Concent 32.7 g/dl Platelet Count 255 K/uL Mean Platelet Volume 9.0 fL Neutrophils (%) (Auto) 55.5 % Lymphocytes (%) (Auto) 37.2 % Monocytes (%) (Auto) 5.9 % Eosinophils (%) (Auto) 0.0 % Basophils (%) (Auto) 0.0 % Neutrophils # (Auto) 1.60 K/uL Lymphocytes # (Auto) 1.07 K/uL Monocytes # (Auto) 0.17 K/uL Eosinophils # (Auto) 0.00 K/uL Basophils # (Auto) 0.00 K/uL RDW Standard Deviation 55.6 fL RDW Coefficient of Variation 17.6 % Immature Granulocyte % (Auto) 1.4 % Immature Granulocyte # (Auto) 0.04 K/uL Sodium Level 135 mmol/L Potassium Level 4.1 mmol/L Chloride Level 104 mmol/L Carbon Dioxide Level 22 mmol/L Anion Gap 8.0 mmol/L Blood Urea Nitrogen 13 mg/dl Creatinine 0.50 mg/dl Est Creatinine Clear Calc Drug Dose 140.5 ml/min Estimated GFR () 129.9 Estimated GFR (Non- 112.1 BUN/Creatinine Ratio 25.1 Random Glucose 113 mg/dl Calcium Level 7.6 mg/dl Cortisol Response to Stimulation Cortisol Baseline Date/Time Source Procedure Growth Status 10/30/17 14:15 Stool C.difficile Toxin B Gene (PCR) - Final Positive for C. difficile toxin B gene Complete 10/30/17 14:15 Stool WBC Smear Pending Received 10/30/17 14:15 Stool Shiga Toxin Test Pending Received 10/30/17 14:15 Stool Stool Culture Pending Received Assessment & Plan 52 yo F presented with weakness and tachycardia post chemotherapy/XRT. 1. Weakness-somewhat improved on IVF and supportive care. This is likely 2/2 volume depletion from decreased oral intake. Cont current management. 2. Tachycardia-persistent for several months and for which she is on metoprolol. Likely exacerbated by dehydration from recent cancer treatments. And now diarrhea is adding to issues and she is c-diff positive. 3. C-diff diarrhea-Vancomycin QID started. Moved into private room. Prior to this lab result, pt did receive one dose Imodium as this was thought 2/2 chemo. 4. PE-RLL on CTA, on Lovenox 90 q12. Missed a couple of doses this weekend, on treatment from prior RLL PE found Aug 2017. Possibly same clot and not a new event. Cont full dose Lovenox. No respiratory distress or hypoxia. 5. Neuropathy of feet-burning and dryness of feet. Cont lotion and Dessitin added. Starting gabapentin BID to see if this helps somewhat. 6. Metastatic adenocarcinoma of colon-currently undergoing XRT and on decadron , also on chemotherapy with infusion over the weekend. Oncology consulted. Pain minimal, however, analgesics PRN. 7. Pancytopenia-likely 2/2 chemo. DVT proph-Keysha Full Code Dispo-cont telemetry. DO Sage Leos Hospitalist Consultants: Oncology[facility] Current Inpatient Medications: Current Inpatient Medications Medications (Trade) Dose Ordered Sig/Radha Route Start Time Stop Time Status Last Admin Dose Admin Ioversol (Optiray 320) 125 ml UD PRN IV 10/29/17 15:45 11/02/17 15:44 Albuterol (Ventolin Hfa Inhaler) 2 puffs Q4 PRN INH 10/29/17 20:45 11/28/17 20:44 Dexamethasone (Decadron Tab) 4 mg BID PO 10/30/17 09:00 11/29/17 08:59 10/30/17 10:11 4 MG Duloxetine HCl (Cymbalta Cap) 60 mg DAILY PO 10/30/17 09:00 11/29/17 08:59 10/30/17 10:11 60 MG Enoxaparin Sodium (Lovenox Inj) 90 mg Q12 SQ 10/29/17 21:00 11/28/17 20:59 10/30/17 10:11 90 MG Fluticasone Propionate (Flonase Nasal [place]) 1 sprays BID NA 10/29/17 21:00 11/28/17 20:59 10/30/17 10:11 1 SPRAYS Albuterol/ Ipratropium (Duoneb) 3 ml Q4R PRN INH 10/29/17 20:45 11/28/17 20:44 Ondansetron HCl (Zofran Tab) 8 mg Q8 PRN PO 10/29/17 20:45 11/28/17 20:44 Oxybutynin Chloride (Ditropan-Xl Tab) 5 mg DAILY PO 10/30/17 09:00 11/29/17 08:59 10/30/17 10:11 5 MG Oxycodone/ Acetaminophen (Percocet 5-325mg Tab) 1 tab Q4H PRN PO 10/29/17 20:45 11/12/17 20:44 Prochlorperazine Maleate (Compazine Tab) 10 mg Q6H PRN PO 10/29/17 20:45 11/28/17 20:44 Trazodone HCl (Desyrel Tab) 50 mg QPM PRN PO 10/29/17 20:45 11/28/17 20:44 Miscellaneous Information (Order Awaiting Action) 1 ea QS N/A 10/30/17 00:00 11/29/17 00:00 Morphine Sulfate (Oramorph Sr Tab) 30 mg Q12 PO 10/29/17 21:00 3/5/18 20:59 Pantoprazole Sodium (Protonix Tab) 40 mg QAM PO 10/30/17 09:00 11/29/17 08:59 10/30/17 10:11 40 MG Metoprolol Succinate (Toprol Xl Tab) 12.5 mg QAM PO 10/30/17 09:00 11/29/17 08:59 10/30/17 10:11 12.5 MG Potassium Chloride/Sodium Chloride 1,000 ml @ 150 mls/hr Q6H40M IV 10/29/17 21:00 11/28/17 20:59 10/30/17 10:47 150 MLS/HR Nystatin (Mycostatin Susp) 5 ml QID PO 10/30/17 09:00 11/09/17 08:59 10/30/17 13:11 5 ML Clotrimazole (Mycelex 10MG Dick) 1 dick 5XDQ4H JEREMIAS 10/30/17 07:00 11/09/17 06:59 10/30/17 15:28 1 DICK Calcium Carbonate (Tums Chew Tab) 500 mg Q4H PRN PO 10/30/17 12:15 11/29/17 12:14 10/30/17 15:37 500 MG Vancomycin HCl (Vancomycin Oral Soln) 125 mg Q6H PO 10/30/17 16:00 11/13/17 15:59 UNV Raspberry (Raspberry Syrup 5ml Cup) 5 ml Q6H PO 10/30/17 16:00 11/13/17 15:59 UNV
[2017-10-31] VITALS (8 sets, daily range): BP systolic 102–119; BP diastolic 56–79; PULSE 76–116; TEMP 36.6–37; O2SAT 97–99
[2017-10-31 05:06] LABS: CALCIUM 7.2 mg/dl (8.5-10.1); CREATININE 0.71 mg/dl (0.60-1.20); POTASSIUM 4.1 mmol/L (3.5-5.1)
[2017-10-31] MEDS: NSS + 20MEQ KCL 1000ML 1,000 ML IV SCH ×2 (06:04→13:29)
[2017-10-31] MEDS: CLOTRIMAZOLE 10 MG TROCHE LOZ SCH (06:28)
[2017-10-31] MEDS ORDERED: CALCIUM GLUCONATE 10% 2,000 MG in SODIUM CHLORIDE 0.9% 50ML 50 ML IV ONE (07:45)
[2017-10-31] MEDS: GABAPENTIN 300 MG CAP PO SCH ×2 (07:59→20:41)
[2017-10-31] MEDS: DULOXETINE HCL 60 MG CAP PO SCH (07:59)
[2017-10-31] MEDS: METOPROLOL SUCC 25MG EXT REL TAB PO SCH (07:59)
[2017-10-31] MEDS: NYSTATIN SUSP 500,000 U/5 ML UDC PO SCH ×4 (07:59→20:37)
[2017-10-31] MEDS: PANTOprazole SOD 40 MG TAB PO SCH ×2 (07:59→20:42)
[2017-10-31] MEDS: FLUTICASONE PROPIONATE NA SPR 16 GM BTL SCH ×2 (08:00→20:35)
[2017-10-31] MEDS: DEXAMETHASONE 4 MG TAB PO SCH ×2 (08:00→20:37)
[2017-10-31] MEDS: OXYBUTYNIN CHLORIDE 5 MG TABCR PO SCH (08:00)
[2017-10-31] MEDS: RASPBERRY SYRUP 5 ML UDP PO SCH ×4 (08:00→20:36)
[2017-10-31] MEDS: VANCOMYCIN HCL 125 MG/2.5ML SOLN PO SCH ×4 (08:00→20:41)
[2017-10-31] MEDS: ENOXAPARIN 100 MG/1ML SYR SQ SCH ×2 (08:01→20:36)
[2017-10-31 08:14] LABS: EOS % 0.3 %; EOS ABS # 0.01 K/uL (0-0.5); HEMATOCRIT 30.7 % (37-47); HEMOGLOBIN 9.9 g/dL (12.0-16.0); IG# 0.04 K/uL (0.00-0.02); LYMPH % 34.1 %; LYMPH ABS # 0.99 K/uL (1.2-3.4); MEAN CELL VOLUME 86.2 fL (80-100); MEAN CORPUSCULAR HEMOGLOBIN 27.8 pg (25-34); MEAN CORPUSCULAR HGB CONC 32.2 g/dl (32-36); MEAN PLATELET VOLUME 9.1 fL (7.4-10.4); MONO % 5.5 %; MONO ABS # 0.16 K/uL (0.11-0.59); NEUT % 58.7 %; PLATELET COUNT 264 K/uL (130-400); RED CELL DISTRIBUTION WIDTH CV 17.3 % (11.5-14.5); RED CELL DISTRIBUTION WIDTH SD 54.1 fL (36.4-46.3)
[2017-10-31] MEDS: CALCIUM CARBONATE 500 MG CHEWABLE PO PRN ×2 (08:31→13:32)
--- NOTE | 2017-10-31 15:16 | Radiation Oncology Progress Nt ---
Radiation Oncology Progress Nt Date of Service Date of Service: Oct 31, 2017. Reason For Admission DVT/Pulmonary Embolus, Dehydration/Poor Oral Intake C. Diff colitis Subjective Pt evaluation today including: conversation w/ patient, conversation with hospitalist, conversation with inpatient team, chart review, lab review, review of studies, review of inpatient medication list Patient is admitted to hospital due to C. Diff colitis, dehydration, pulmonary embolus. Radiation Therapy Has patient started Radiation: Yes Number of Treatments Received: 5 Number of Treatments Planned: 10 Objective Vital Signs Date Time Temp Pulse Resp B/P (MAP) Pulse Ox O2 Delivery O2 Flow Rate FiO2 10/31/17 12:00 Room Air 10/31/17 11:00 36.8 76 18 114/66 (82) 98 10/31/17 08:00 99 Room Air 10/31/17 07:48 36.9 100 20 112/56 (74) 99 104/79 (87) 102/78 (86) 10/31/17 04:00 Room Air 10/31/17 03:14 37.0 97 17 119/79 (92) 97 Room Air 10/31/17 00:00 Room Air 10/30/17 23:22 37.0 105 17 131/82 (98) 99 Room Air 10/30/17 20:17 37.1 114 19 131/59 (83) 95 10/30/17 20:00 Room Air 10/30/17 16:00 Room Air Physical Exam General Appearance: WD/WN, no apparent distress Eyes: normal inspection ENT: normal ENT inspection Neurologic/Psychiatric: upper marker II-XII nml as tested, alert, oriented x 3 Laboratory Results Last 24 Hours Test 10/31/17 04:19 10/31/17 07:50 Sodium Level 136 mmol/L Potassium Level 4.1 mmol/L Chloride Level 107 mmol/L Carbon Dioxide Level 23 mmol/L Anion Gap 6.0 mmol/L Blood Urea Nitrogen 13 mg/dl Creatinine 0.71 mg/dl Est Creatinine Clear Calc Drug Dose 99.0 ml/min Estimated GFR () 114.3 Estimated GFR (Non- 98.6 BUN/Creatinine Ratio 17.8 Random Glucose 133 mg/dl Calcium Level 7.2 mg/dl Magnesium Level 2.3 mg/dl White Blood Count 2.90 K/uL Red Blood Count 3.56 M/uL Hemoglobin 9.9 g/dL Hematocrit 30.7 % Mean Corpuscular Volume 86.2 fL Mean Corpuscular Hemoglobin 27.8 pg Mean Corpuscular Hemoglobin Concent 32.2 g/dl Platelet Count 264 K/uL Mean Platelet Volume 9.1 fL Neutrophils (%) (Auto) 58.7 % Lymphocytes (%) (Auto) 34.1 % Monocytes (%) (Auto) 5.5 % Eosinophils (%) (Auto) 0.3 % Basophils (%) (Auto) 0.0 % Neutrophils # (Auto) 1.70 K/uL Lymphocytes # (Auto) 0.99 K/uL Monocytes # (Auto) 0.16 K/uL Eosinophils # (Auto) 0.01 K/uL Basophils # (Auto) 0.00 K/uL RDW Standard Deviation 54.1 fL RDW Coefficient of Variation 17.3 % Immature Granulocyte % (Auto) 1.4 % Immature Granulocyte # (Auto) 0.04 K/uL Assessment and Plan We have discussed the patients care with the primary hospital service. The patients reason for admission is unrelated to radiation therapy. The primary hospital service has recommended the patient continue with radiation therapy while in the inpatient setting. The patient was evaluated in our department and will continue with radiation therapy during this hospital course. Please call us with any further questions or concerns or if the patients condition changes during her hospital admission.
--- NOTE | 2017-10-31 23:10 | Progress Note ---
Medicine Progress Note Date & Time of Visit: Oct 31, 2017 at 14:21. Subjective 52 yo F presented with weakness and tachycardia post chemotherapy/XRT. She has improved with IVF. Still several loose BMs in setting of c-diff with recent vanco start. Tolerating PO. Afebrile. Without pain and with pain in her heels greatly improved on the Desitin and the gabapentin. Started XRT back up today. Objective Last 8 Hrs Date Time Temp Pulse Resp B/P (MAP) Pulse Ox O2 Delivery O2 Flow Rate FiO2 10/31/17 12:00 Room Air 10/31/17 11:00 36.8 76 18 114/66 (82) 98 10/31/17 08:00 99 Room Air 10/31/17 07:48 36.9 100 20 112/56 (74) 99 104/79 (87) 102/78 (86) Physical Exam: GEN: WNWD, in no acute distress, alert and appropriate, no conversational dyspnea. Mentating very clearly, energetic. HEENT: NC/AT, normal sclerae, MMM CARDIO: tachy rate, S1/2 heard without m/g/r LUNGS: CTA bilaterally, no crackles, rales or wheezes, good diaphragmatic excursion ABD: soft, nontender, non-distended, no rebound or guarding, +BS EXTREMITY: RP and DP palpable 2+ bilat, no LE swelling or edema, extremities are warm and well-perfused. Heels appear less cracked and less red today. NEURO: CN 2-12 grossly intact, no gross focal deficits. MUSC: 5/5 strength throughout, no gross focal deficits SKIN: warm and dry Laboratory Results: 10/31/17 07:50 Red Blood Count 3.56, Mean Corpuscular Volume 86.2, Mean Corpuscular Hemoglobin 27.8, Mean Corpuscular Hemoglobin Concent 32.2, Mean Platelet Volume 9.1, Neutrophils (%) (Auto) 58.7, Lymphocytes (%) (Auto) 34.1, Monocytes (%) (Auto) 5.5, Eosinophils (%) (Auto) 0.3, Basophils (%) (Auto) 0.0, Neutrophils # (Auto) 1.70, Lymphocytes # (Auto) 0.99, Monocytes # (Auto) 0.16, Eosinophils # (Auto) 0.01, Basophils # (Auto) 0.00 10/31/17 04:19 Test 10/29/17 15:40 10/30/17 07:52 10/31/17 04:19 10/31/17 07:50 Prothrombin Time 10.7 SECONDS (9.0-12.0) Prothromb Time International Ratio 1.0 (0.9-1.1) Activated Partial Thromboplast Time 21.0 SECONDS (21.0-31.0) Partial Thromboplastin Ratio 0.8 Total Bilirubin 0.8 mg/dl (0.2-1) Aspartate Amino Transf (AST/SGOT) 18 U/L (15-37) Alanine Aminotransferase (ALT/SGPT) 29 U/L (12-78) Alkaline Phosphatase 216 U/L (45-117) Troponin I < 0.015 ng/ml (0-0.045) Total Protein 7.3 gm/dl (6.4-8.2) Albumin 3.2 gm/dl (3.4-5.0) Globulin 4.1 gm/dl (2.5-4.0) Albumin/Globulin Ratio 0.8 (0.9-2) Thyroid Stimulating Hormone (TSH) 2.680 uIu/ml (0.300-4.500) Cortisol Response to Stimulation Cortisol Baseline Anion Gap 6.0 mmol/L (3-11) Est Creatinine Clear Calc Drug Dose 99.0 ml/min Estimated GFR () 114.3 Estimated GFR (Non- 98.6 BUN/Creatinine Ratio 17.8 (10-20) Calcium Level 7.2 mg/dl (8.5-10.1) Magnesium Level 2.3 mg/dl (1.8-2.4) White Blood Count 2.90 K/uL (4.8-10.8) Red Blood Count 3.56 M/uL (4.2-5.4) Hemoglobin 9.9 g/dL (12.0-16.0) Hematocrit 30.7 % (37-47) Mean Corpuscular Volume 86.2 fL (80-100) Mean Corpuscular Hemoglobin 27.8 pg (25-34) Mean Corpuscular Hemoglobin Concent 32.2 g/dl (32-36) Platelet Count 264 K/uL (130-400) Mean Platelet Volume 9.1 fL (7.4-10.4) Neutrophils (%) (Auto) 58.7 % Lymphocytes (%) (Auto) 34.1 % Monocytes (%) (Auto) 5.5 % Eosinophils (%) (Auto) 0.3 % Basophils (%) (Auto) 0.0 % Neutrophils # (Auto) 1.70 K/uL (1.4-6.5) Lymphocytes # (Auto) 0.99 K/uL (1.2-3.4) Monocytes # (Auto) 0.16 K/uL (0.11-0.59) Eosinophils # (Auto) 0.01 K/uL (0-0.5) Basophils # (Auto) 0.00 K/uL (0-0.2) RDW Standard Deviation 54.1 fL (36.4-46.3) RDW Coefficient of Variation 17.3 % (11.5-14.5) Immature Granulocyte % (Auto) 1.4 % Immature Granulocyte # (Auto) 0.04 K/uL (0.00-0.02) Date/Time Source Procedure Growth Status 10/30/17 14:15 Stool C.difficile Toxin B Gene (PCR) - Final Positive for C. difficile toxin B gene Complete Last 24 Hours Test 10/31/17 04:19 10/31/17 07:50 Sodium Level 136 mmol/L Potassium Level 4.1 mmol/L Chloride Level 107 mmol/L Carbon Dioxide Level 23 mmol/L Anion Gap 6.0 mmol/L Blood Urea Nitrogen 13 mg/dl Creatinine 0.71 mg/dl Est Creatinine Clear Calc Drug Dose 99.0 ml/min Estimated GFR () 114.3 Estimated GFR (Non- 98.6 BUN/Creatinine Ratio 17.8 Random Glucose 133 mg/dl Calcium Level 7.2 mg/dl Magnesium Level 2.3 mg/dl White Blood Count 2.90 K/uL Red Blood Count 3.56 M/uL Hemoglobin 9.9 g/dL Hematocrit 30.7 % Mean Corpuscular Volume 86.2 fL Mean Corpuscular Hemoglobin 27.8 pg Mean Corpuscular Hemoglobin Concent 32.2 g/dl Platelet Count 264 K/uL Mean Platelet Volume 9.1 fL Neutrophils (%) (Auto) 58.7 % Lymphocytes (%) (Auto) 34.1 % Monocytes (%) (Auto) 5.5 % Eosinophils (%) (Auto) 0.3 % Basophils (%) (Auto) 0.0 % Neutrophils # (Auto) 1.70 K/uL Lymphocytes # (Auto) 0.99 K/uL Monocytes # (Auto) 0.16 K/uL Eosinophils # (Auto) 0.01 K/uL Basophils # (Auto) 0.00 K/uL RDW Standard Deviation 54.1 fL RDW Coefficient of Variation 17.3 % Immature Granulocyte % (Auto) 1.4 % Immature Granulocyte # (Auto) 0.04 K/uL Assessment & Plan 52 yo F presented with weakness and tachycardia post chemotherapy/XRT. She has improved with IVF. Still several loose BMs in setting of c-diff with recent vanco start. Tolerating PO. Afebrile. Without pain and with pain in her heels greatly improved on the Desitin and the gabapentin. Started XRT back up today. 1. Weakness-improved with supportive care and treatment of c-diff diarrhea. This is likely 2/2 volume depletion from decreased oral intake. Cont current management. 2. Tachycardia-improved. persistent for several months and for which she is on metoprolol; will increase back to her full dose of 25mg daily. 3. C-diff diarrhea-Vancomycin QID. Cont supportive care for diarrhea as needed. Contact precautions. 4. PE-RLL on CTA, on Lovenox 90 q12. 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 Possibly same clot and not a new event. Cont full dose Lovenox. No respiratory distress or hypoxia. 5. Neuropathy of feet-burning and dryness of feet. Cont lotion and Desitin and gabapentin at current dosing. 6. Metastatic adenocarcinoma of colon-currently undergoing XRT and on decadron , also on chemotherapy with infusion over the weekend. Oncology consulted. Pain minimal, however, analgesics PRN. 7. Pancytopenia-likely 2/2 chemo. No evidence of neutropenia. Cont daily CBCD. DVT proph-Keysha Full Code Dispo-cont telemetry. Lilian Holguin DO [facility] Hospitalist Consultants: Oncology-Sigifredo Sow Onc-Dr. Libra Rincon Current Inpatient Medications: Current Inpatient Medications Medications (Trade) Dose Ordered Sig/Radha Route Start Time Stop Time Status Last Admin Dose Admin Ioversol (Optiray 320) 125 ml UD PRN IV 10/29/17 15:45 11/02/17 15:44 Albuterol (Ventolin Hfa Inhaler) 2 puffs Q4 PRN INH 10/29/17 20:45 11/28/17 20:44 Dexamethasone (Decadron Tab) 4 mg BID PO 10/30/17 09:00 11/29/17 08:59 10/31/17 08:00 4 MG Duloxetine HCl (Cymbalta Cap) 60 mg DAILY PO 10/30/17 09:00 11/29/17 08:59 10/31/17 07:59 60 MG Enoxaparin Sodium (Lovenox Inj) 90 mg Q12 SQ 10/29/17 21:00 11/28/17 20:59 10/31/17 08:01 90 MG Fluticasone Propionate (Flonase Nasal [place]) 1 sprays BID NA 10/29/17 21:00 11/28/17 20:59 10/31/17 08:00 1 SPRAYS Albuterol/ Ipratropium (Duoneb) 3 ml Q4R PRN INH 10/29/17 20:45 11/28/17 20:44 Ondansetron HCl (Zofran Tab) 8 mg Q8 PRN PO 10/29/17 20:45 11/28/17 20:44 Oxybutynin Chloride (Ditropan-Xl Tab) 5 mg DAILY PO 10/30/17 09:00 11/29/17 08:59 10/31/17 08:00 5 MG Oxycodone/ Acetaminophen (Percocet 5-325mg Tab) 1 tab Q4H PRN PO 10/29/17 20:45 11/12/17 20:44 Prochlorperazine Maleate (Compazine Tab) 10 mg Q6H PRN PO 10/29/17 20:45 11/28/17 20:44 Trazodone HCl (Desyrel Tab) 50 mg QPM PRN PO 10/29/17 20:45 11/28/17 20:44 Miscellaneous Information (Order Awaiting Action) 1 ea QS N/A 10/30/17 00:00 11/29/17 00:00 10/31/17 08:08 1 EA Pantoprazole Sodium (Protonix Tab) 40 mg QAM PO 10/30/17 09:00 11/29/17 08:59 10/31/17 07:59 40 MG Metoprolol Succinate (Toprol Xl Tab) 12.5 mg QAM PO 10/30/17 09:00 11/29/17 08:59 10/31/17 07:59 12.5 MG Potassium Chloride/Sodium Chloride 1,000 ml @ 150 mls/hr Q6H40M IV 10/29/17 21:00 11/28/17 20:59 10/31/17 13:29 150 MLS/HR Nystatin (Mycostatin Susp) 5 ml QID PO 10/30/17 09:00 11/09/17 08:59 10/31/17 13:29 5 ML Calcium Carbonate (Tums Chew Tab) 500 mg Q4H PRN PO 10/30/17 12:15 11/29/17 12:14 10/31/17 13:32 500 MG Vancomycin HCl (Vancomycin Oral Soln) 125 mg QID PO 10/30/17 17:00 11/13/17 16:59 10/31/17 13:29 125 MG Raspberry (Raspberry Syrup 5ml Cup) 5 ml QID PO 10/30/17 17:00 11/13/17 16:59 10/31/17 13:29 5 ML Gabapentin (Neurontin Cap) 300 mg BID PO 10/30/17 21:00 11/29/17 20:59 10/31/17 07:59 300 MG Multi-Ingredient Ointment (Desitin Oint) 0.5 gm UD PRN EXT 10/30/17 16:15 11/29/17 16:14 Heparin Sodium (Porcine) (Heparin 100 Unit/ml 5ml Flush) 5 ml PRN PRN IV 10/30/17 23:45 11/29/17 23:44
[2017-11-01] VITALS (10 sets, daily range): BP systolic 107–120; BP diastolic 74–83; PULSE 105–123; TEMP 36.6–37; O2SAT 92–98
[2017-11-01 06:02] LABS: EOS % 1.2 %; EOS ABS # 0.04 K/uL (0-0.5); HEMATOCRIT 32.2 % (37-47); HEMOGLOBIN 10.3 g/dL (12.0-16.0); IG# 0.03 K/uL (0.00-0.02); LYMPH % 34.6 %; LYMPH ABS # 1.11 K/uL (1.2-3.4); MEAN CELL VOLUME 86.6 fL (80-100); MEAN CORPUSCULAR HEMOGLOBIN 27.7 pg (25-34); MEAN PLATELET VOLUME 9.4 fL (7.4-10.4); MONO % 5.3 %; MONO ABS # 0.17 K/uL (0.11-0.59); NEUT ABS # 1.86 K/uL (1.4-6.5); PLATELET COUNT 282 K/uL (130-400); RED CELL DISTRIBUTION WIDTH CV 17.2 % (11.5-14.5); RED CELL DISTRIBUTION WIDTH SD 54.6 fL (36.4-46.3); WHITE BLOOD COUNT 3.21 K/uL (4.8-10.8)
[2017-11-01] MEDS: METOPROLOL SUCC 25MG EXT REL TAB PO SCH (06:11)
[2017-11-01] MEDS: GABAPENTIN 300 MG CAP PO SCH ×2 (06:11→17:02)
[2017-11-01] MEDS: PANTOprazole SOD 40 MG TAB PO SCH ×2 (06:12→17:02)
[2017-11-01 06:40] LABS: ALBUMIN 3.1 gm/dl (3.4-5.0); CREATININE 0.66 mg/dl (0.60-1.20); POTASSIUM 3.9 mmol/L (3.5-5.1)
[2017-11-01 06:59] LABS: CALCIUM 8.3 mg/dl (8.5-10.1)
[2017-11-01] MEDS: DULOXETINE HCL 60 MG CAP PO SCH (08:08)
[2017-11-01] MEDS: DEXAMETHASONE 4 MG TAB PO SCH ×2 (08:08→20:48)
[2017-11-01] MEDS: NYSTATIN SUSP 500,000 U/5 ML UDC PO SCH ×4 (08:10→20:49)
[2017-11-01] MEDS: RASPBERRY SYRUP 5 ML UDP PO SCH ×4 (08:10→20:46)
[2017-11-01] MEDS: VANCOMYCIN HCL 125 MG/2.5ML SOLN PO SCH ×4 (08:10→20:46)
[2017-11-01] MEDS: FLUTICASONE PROPIONATE NA SPR 16 GM BTL SCH ×2 (08:11→20:48)
[2017-11-01] MEDS: ENOXAPARIN 100 MG/1ML SYR SQ SCH ×2 (08:12→20:47)
[2017-11-01] MEDS ORDERED: NURSING DECISION MEDICATION ORDER SCH (13:45)
[2017-11-01] MEDS: LANOLIN/PETROLATUM 30 GM TUBE EXT PRN (13:55)
[2017-11-01] MEDS ORDERED: EUCERIN CR 120 GM JAR EXT PRN (15:30)
[2017-11-01] MEDS ORDERED: OXYBUTYNIN CHLORIDE 5 MG TABCR PO SCH (21:00)
--- NOTE | 2017-11-01 21:26 | Progress Note ---
Medicine Progress Note Date & Time of Visit: Nov 01, 2017 at 1400. Subjective 52 yo F presented with weakness and tachycardia post chemotherapy/XRT. She has improved with IVF. Still several loose BMs in setting of c-diff with recent vanco start. Tolerating PO. Afebrile. Without pain and with pain in her heels greatly improved on the Desitin and the gabapentin. Continues with XRT. Denies any diarrhea today. Denies abdominal pain. We discussed possible discharge tomorrow. Objective Last 8 Hrs Date Time Temp Pulse Resp B/P (MAP) Pulse Ox O2 Delivery O2 Flow Rate FiO2 11/01/17 19:06 36.8 109 22 120/83 (95) 97 Room Air 11/01/17 17:19 105 111/74 (86) 97 11/01/17 16:41 123 109/76 (87) 97 11/01/17 16:40 110 115/83 (94) 96 11/01/17 16:08 Room Air 11/01/17 16:00 98 Room Air 11/01/17 15:28 36.8 105 20 114/76 (89) 98 Room Air Physical Exam: GEN: WNWD, in no acute distress, alert and appropriate, no conversational dyspnea. Mentating very clearly, energetic. HEENT: NC/AT, normal sclerae, MMM CARDIO: tachy rate, S1/2 heard without m/g/r LUNGS: CTA bilaterally, no crackles, rales or wheezes, good diaphragmatic excursion ABD: soft, nontender, non-distended, no rebound or guarding, +BS EXTREMITY: RP and DP palpable 2+ bilat, no LE swelling or edema, extremities are warm and well-perfused. Heels appear less cracked and less red today. NEURO: CN 2-12 grossly intact, no gross focal deficits. MUSC: 5/5 strength throughout, no gross focal deficits SKIN: warm and dry Laboratory Results: 11/01/17 05:37 Red Blood Count 3.72, Mean Corpuscular Volume 86.6, Mean Corpuscular Hemoglobin 27.7, Mean Corpuscular Hemoglobin Concent 32.0, Mean Platelet Volume 9.4, Neutrophils (%) (Auto) 58.0, Lymphocytes (%) (Auto) 34.6, Monocytes (%) (Auto) 5.3, Eosinophils (%) (Auto) 1.2, Basophils (%) (Auto) 0.0, Neutrophils # (Auto) 1.86, Lymphocytes # (Auto) 1.11, Monocytes # (Auto) 0.17, Eosinophils # (Auto) 0.04, Basophils # (Auto) 0.00 11/01/17 05:37 Test 10/29/17 15:40 10/30/17 07:52 10/31/17 04:19 11/01/17 05:37 Prothrombin Time 10.7 SECONDS (9.0-12.0) Prothromb Time International Ratio 1.0 (0.9-1.1) Activated Partial Thromboplast Time 21.0 SECONDS (21.0-31.0) Partial Thromboplastin Ratio 0.8 Total Bilirubin 0.8 mg/dl (0.2-1) Aspartate Amino Transf (AST/SGOT) 18 U/L (15-37) Alanine Aminotransferase (ALT/SGPT) 29 U/L (12-78) Alkaline Phosphatase 216 U/L (45-117) Troponin I < 0.015 ng/ml (0-0.045) Total Protein 7.3 gm/dl (6.4-8.2) Globulin 4.1 gm/dl (2.5-4.0) Albumin/Globulin Ratio 0.8 (0.9-2) Thyroid Stimulating Hormone (TSH) 2.680 uIu/ml (0.300-4.500) Cortisol Response to Stimulation Cortisol Baseline Magnesium Level 2.3 mg/dl (1.8-2.4) White Blood Count 3.21 K/uL (4.8-10.8) Red Blood Count 3.72 M/uL (4.2-5.4) Hemoglobin 10.3 g/dL (12.0-16.0) Hematocrit 32.2 % (37-47) Mean Corpuscular Volume 86.6 fL (80-100) Mean Corpuscular Hemoglobin 27.7 pg (25-34) Mean Corpuscular Hemoglobin Concent 32.0 g/dl (32-36) Platelet Count 282 K/uL (130-400) Mean Platelet Volume 9.4 fL (7.4-10.4) Neutrophils (%) (Auto) 58.0 % Lymphocytes (%) (Auto) 34.6 % Monocytes (%) (Auto) 5.3 % Eosinophils (%) (Auto) 1.2 % Basophils (%) (Auto) 0.0 % Neutrophils # (Auto) 1.86 K/uL (1.4-6.5) Lymphocytes # (Auto) 1.11 K/uL (1.2-3.4) Monocytes # (Auto) 0.17 K/uL (0.11-0.59) Eosinophils # (Auto) 0.04 K/uL (0-0.5) Basophils # (Auto) 0.00 K/uL (0-0.2) RDW Standard Deviation 54.6 fL (36.4-46.3) RDW Coefficient of Variation 17.2 % (11.5-14.5) Immature Granulocyte % (Auto) 0.9 % Immature Granulocyte # (Auto) 0.03 K/uL (0.00-0.02) Anion Gap 10.0 mmol/L (3-11) Est Creatinine Clear Calc Drug Dose 106.3 ml/min Estimated GFR () 118.5 Estimated GFR (Non- 102.3 BUN/Creatinine Ratio 19.7 (10-20) Calcium Level 8.3 mg/dl (8.5-10.1) Albumin 3.1 gm/dl (3.4-5.0) Date/Time Source Procedure Growth Status 10/30/17 14:15 Stool C.difficile Toxin B Gene (PCR) - Final Positive for C. difficile toxin B gene Complete Last 24 Hours Test 11/01/17 05:37 White Blood Count 3.21 K/uL Red Blood Count 3.72 M/uL Hemoglobin 10.3 g/dL Hematocrit 32.2 % Mean Corpuscular Volume 86.6 fL Mean Corpuscular Hemoglobin 27.7 pg Mean Corpuscular Hemoglobin Concent 32.0 g/dl Platelet Count 282 K/uL Mean Platelet Volume 9.4 fL Neutrophils (%) (Auto) 58.0 % Lymphocytes (%) (Auto) 34.6 % Monocytes (%) (Auto) 5.3 % Eosinophils (%) (Auto) 1.2 % Basophils (%) (Auto) 0.0 % Neutrophils # (Auto) 1.86 K/uL Lymphocytes # (Auto) 1.11 K/uL Monocytes # (Auto) 0.17 K/uL Eosinophils # (Auto) 0.04 K/uL Basophils # (Auto) 0.00 K/uL RDW Standard Deviation 54.6 fL RDW Coefficient of Variation 17.2 % Immature Granulocyte % (Auto) 0.9 % Immature Granulocyte # (Auto) 0.03 K/uL Sodium Level 137 mmol/L Potassium Level 3.9 mmol/L Chloride Level 103 mmol/L Carbon Dioxide Level 24 mmol/L Anion Gap 10.0 mmol/L Blood Urea Nitrogen 13 mg/dl Creatinine 0.66 mg/dl Est Creatinine Clear Calc Drug Dose 106.3 ml/min Estimated GFR () 118.5 Estimated GFR (Non- 102.3 BUN/Creatinine Ratio 19.7 Random Glucose 120 mg/dl Calcium Level 8.3 mg/dl Albumin 3.1 gm/dl Assessment & Plan 52 yo F presented with weakness and tachycardia post chemotherapy/XRT. She has improved with IVF. Still several loose BMs in setting of c-diff with recent vanco start. Tolerating PO. Afebrile. Without pain and with pain in her heels greatly improved on the Desitin and the gabapentin. Continues with XRT. Denies any diarrhea today. Denies abdominal pain. We discussed possible discharge tomorrow. 1. Weakness-improved with supportive care and treatment of c-diff diarrhea. Plan for DC in am. 2. Tachycardia-improved. persistent for several months and for which she is on metoprolol;increased her back to 25mg daily. 3. C-diff diarrhea-Vancomycin QID. Cont supportive care for diarrhea as needed. Contact precautions. 4. PE-RLL on CTA, on Lovenox 90 q12. 5. Neuropathy of feet-burning and dryness of feet. Cont lotion and Desitin and gabapentin at current dosing. 6. Metastatic adenocarcinoma of colon-currently undergoing XRT and on decadron , also on chemotherapy with infusion over the weekend. Oncology consulted. Pain minimal, however, analgesics PRN. 7. Pancytopenia-likely 2/2 chemo. No evidence of neutropenia. Cont daily CBCD. DVT proph-Keysha Full Code Dispo-cont telemetry. DO [facility] Hospitalist Consultants: Oncology-Sigifredo Sow Onc-Dr. Libra Rincon Current Inpatient Medications: Current Inpatient Medications Medications (Trade) Dose Ordered Sig/Radha Route Start Time Stop Time Status Last Admin Dose Admin Ioversol (Optiray 320) 125 ml UD PRN IV 10/29/17 15:45 11/02/17 15:44 Albuterol (Ventolin Hfa Inhaler) 2 puffs Q4 PRN INH 10/29/17 20:45 11/28/17 20:44 Dexamethasone (Decadron Tab) 4 mg BID PO 10/30/17 09:00 11/29/17 08:59 11/01/17 20:48 4 MG Duloxetine HCl (Cymbalta Cap) 60 mg DAILY PO 10/30/17 09:00 11/29/17 08:59 11/01/17 08:08 60 MG Enoxaparin Sodium (Lovenox Inj) 90 mg Q12 SQ 10/29/17 21:00 11/28/17 20:59 11/01/17 20:47 90 MG Fluticasone Propionate (Flonase Nasal [place]) 1 sprays BID NA 10/29/17 21:00 11/28/17 20:59 11/01/17 20:48 1 SPRAYS Albuterol/ Ipratropium (Duoneb) 3 ml Q4R PRN INH 10/29/17 20:45 11/28/17 20:44 Ondansetron HCl (Zofran Tab) 8 mg Q8 PRN PO 10/29/17 20:45 11/28/17 20:44 Oxycodone/ Acetaminophen (Percocet 5-325mg Tab) 1 tab Q4H PRN PO 10/29/17 20:45 11/12/17 20:44 Prochlorperazine Maleate (Compazine Tab) 10 mg Q6H PRN PO 10/29/17 20:45 11/28/17 20:44 Trazodone HCl (Desyrel Tab) 50 mg QPM PRN PO 10/29/17 20:45 11/28/17 20:44 Miscellaneous Information (Order Awaiting Action) 1 ea QS N/A 10/30/17 00:00 11/29/17 00:00 10/31/17 08:08 1 EA Nystatin (Mycostatin Susp) 5 ml QID PO 10/30/17 09:00 11/09/17 08:59 11/01/17 20:49 5 ML Calcium Carbonate (Tums Chew Tab) 500 mg Q4H PRN PO 10/30/17 12:15 11/29/17 12:14 10/31/17 13:32 500 MG Vancomycin HCl (Vancomycin Oral Soln) 125 mg QID PO 10/30/17 17:00 11/13/17 16:59 11/01/17 20:46 125 MG Raspberry (Raspberry Syrup 5ml Cup) 5 ml QID PO 10/30/17 17:00 11/13/17 16:59 11/01/17 20:46 5 ML Multi-Ingredient Ointment (Desitin Oint) 0.5 gm UD PRN EXT 10/30/17 16:15 11/29/17 16:14 11/01/17 13:55 0.5 GM Heparin Sodium (Porcine) (Heparin 100 Unit/ml 5ml Flush) 5 ml PRN PRN IV 10/30/17 23:45 11/29/17 23:44 10/31/17 18:59 5 ML Gabapentin (Neurontin Cap) 300 mg BID@0600,1800 PO 10/31/17 19:15 11/29/17 19:14 11/01/17 17:02 300 MG Oxybutynin Chloride (Ditropan-Xl Tab) 5 mg HS PO 11/01/17 21:00 11/29/17 08:59 11/01/17 20:49 5 MG Pantoprazole Sodium (Protonix Tab) 40 mg BID@0600,1800 PO 10/31/17 19:15 11/29/17 19:14 11/01/17 17:02 40 MG Metoprolol Succinate (Toprol Xl Tab) 25 mg DAILY@0600 PO 11/01/17 06:00 12/01/17 05:59 11/01/17 06:11 25 MG Multi-Ingredient Ointment (Eucerin Unscented Cr) 1 appln PRN PRN EXT 11/01/17 15:30 12/01/17 15:29
[2017-11-02 04:15] VITALS: BP 110/72; PULSE 108; TEMP 36.7; O2SAT 98
[2017-11-02] MEDS: PANTOprazole SOD 40 MG TAB PO SCH ×2 (05:41→17:09)
[2017-11-02] MEDS: GABAPENTIN 300 MG CAP PO SCH ×2 (05:41→17:09)
[2017-11-02] MEDS: METOPROLOL SUCC 25MG EXT REL TAB PO SCH (05:41)
[2017-11-02] MEDS: LANOLIN/PETROLATUM 30 GM TUBE EXT PRN (05:43)
[2017-11-02 07:20] VITALS: BP 108/76; PULSE 95; TEMP 36.7; O2SAT 99
[2017-11-02] MEDS: FLUTICASONE PROPIONATE NA SPR 16 GM BTL SCH (07:27)
[2017-11-02] MEDS: DEXAMETHASONE 4 MG TAB PO SCH (07:27)
[2017-11-02] MEDS: VANCOMYCIN HCL 125 MG/2.5ML SOLN PO SCH ×3 (07:27→17:09)
[2017-11-02] MEDS: DULOXETINE HCL 60 MG CAP PO SCH (07:27)
[2017-11-02] MEDS: ENOXAPARIN 100 MG/1ML SYR SQ SCH (07:28)
[2017-11-02] MEDS: NYSTATIN SUSP 500,000 U/5 ML UDC PO SCH ×3 (07:28→17:10)
[2017-11-02] MEDS: RASPBERRY SYRUP 5 ML UDP PO SCH ×3 (07:28→17:09)
[2017-11-02 12:05] VITALS: BP_SYST 106; BP_SYST 118; BP_SYST 122; BP_DIAS 70; BP_DIAS 78; BP_DIAS 81; PULSE 115; PULSE 124; TEMP 36.8; O2SAT 95
[2017-11-02] MEDS ORDERED: NYSS5 PO (13:23)
[2017-11-02] MEDS ORDERED: VANC5CAP PO (13:23)
[2017-11-02] MEDS ORDERED: NRN300 PO (13:23)
--- NOTE | 2017-11-02 13:27 | Discharge Instructions ---
Discharge Instructions Date of Service Nov 02, 2017. Admission Reason for Admission: Metastatic Colon Cancer In Female, Pulmonary Embol Discharge Discharge Diagnosis / Problem: hypovolemia, tachycardia, cdiff Discharge Goals Goal(s): Prevent Disease Progression Activity Recommendations Activity Limitations: per Instructions/Follow-up section . Instructions / Follow-Up Instructions / Follow-Up Please take all medications as instructed. Please follow-up with Oncology as instructed by Dr. Mei. Please follow-up/continue with radiation treatments next week per Dr. Rincon. Continue to apply Desitin (over the counter baby diaper cream) to heels as needed. You have an appointment for follow-up with Dr. Ronal Heredia on 11/07 @ 5544 for follow-up from this hospitalization. It was a pleasure taking care of you! Call if you have any questions or problems. You can reach a [facility] hospitalist on duty at [facility] 24 hours a day by calling [phone]. Take care of yourself. Lilian Holguin, [facility] Hospitalist Current Hospital Diet Patient's current hospital diet: Regular Diet Discharge Diet Recommended Diet: Regular Diet Procedures Procedures Performed: Radiation while inpatient Pending Studies Studies pending at discharge: no Medical Emergencies . Who to Call and When: Medical Emergencies: If at any time you feel your situation is an emergency, please call 911 immediately. . Non-Emergent Contact Non-Emergency issues call your: Primary Care Provider . . "Provider Documentation" section prepared by Lilian Holguin. . VTE Core Measure Inpt VTE Proph given/why not?: Enoxaparin (Lovenox)SQ
[2017-11-02 14:22] VITALS: BP 106/70; PULSE 124; TEMP 36.8; O2SAT 95
--- NOTE | 2017-11-07 16:22 | Discharge Summary ---
Discharge Summary Date of Service Nov 07, 2017. Discharge Summary Admission Date: Oct 29, 2017 at 19:30 Discharge Date: Nov 02, 2017 Discharge Disposition: Home Principal Diagnosis: 1. Weakness 2. Tachycardia 3. C. difficile diarrhea 4. PE 5. Neuropathy of feet 6. Metastatic adenocarcinoma of the colon 7. Pancytopenia Procedures: None. Vaccinations: None. Consultations: Oncology-[facility]-Dr. Libra Rincon Pending Studies/Follow-Up: see instructions below. Medication Reconciliation New Medications: Vancomycin Hcl (Vancomycin) 125 Mg Cap 125 MG PO QID for 9 Days, #36 CAP Gabapentin (Gabapentin) 300 Mg Cap 300 MG PO BID@0600,1800 for 30 Days, #60 CAP 1 Refill Nystatin (Nystatin) 5 Ml Susp 5 ML PO QID for 7 Days, #480 ML Take 5mL by mouth, swish for 30 secs, then swallow four times daily x 7 days. Continued Medications: Albuterol Sulfate (Proventil Hfa) 108 Mcg/Act Aer 2 PUFFS INH Q4 PRN for SOB/Wheezing Dexamethasone (Decadron) 4 Mg Tab 4 MG PO BID Diphenoxylate/Atropine (Lomotil) Tab 1 TAB PO QID PRN for Diarrhea Duloxetine Hcl (Cymbalta) 60 Mg Cap 60 MG PO DAILY Enoxaparin (Lovenox) 100 Mg/Ml Inj 90 MG INJ Q12 Fluticasone Propionate (Nasal) (Flonase Allergy Relief) 50 Mcg/Act Spr 1 SPRAY NEB BID Ipratropium-Albuterol (Duoneb) 3 Ml Nebu 1 TREATMENT INH Q4H PRN for SOB/Wheezing Loperamide Hcl (Imodium) 2 Mg Cap 2 MG PO UD PRN for Diarrhea Metoprolol Succ (Toprol Xl) (Toprol-Xl) 25 Mg Tabcr 25 MG PO QAM Metoprolol Succ (Toprol Xl) (Toprol-Xl) 25 Mg Tabcr 12.5 MG PO QPM Mometasone Furoate-Formoterol (Dulera 100/5 Mcg) 1 Aer Aer 2 PUFFS INH BID Omeprazole (Prilosec) 20 Mg Capcr 20 MG PO DAILY Ondansetron Hcl (Zofran) 8 Mg Tab 8 MG PO Q8 PRN for Nausea Oxybutynin Chloride (Ditropan Xl) 5 Mg Tab 5 MG PO DAILY Oxycodone/Acetaminophen 5MG/325MG (Percocet 5MG/325MG) Tab 1 TABLET PO Q4H PRN for Pain PAIN Prochlorperazine Maleate (Compazine) 10 Mg Tab 10 MG PO Q6H PRN for Nausea Trazodone Hcl (Trazodone) 50 Mg Tab 50 MG PO QPM PRN for Sleep Discontinued Medications: Morphine Sulfate (Morphine Sulfate ER) 30 Mg Tabcr 30 MG PO Q12 Admission Information HPI (per Admitting provider): 52-year-old female followed by Dr. Block for Family Medicine and Dr. Mei for Hematology/Oncology. Diagnosed with colon adenocarcinoma in November 2016 treated with chemotherapy followed by surgical resection in April 2017. Metastatic disease to multiple skeletal sites (right acetabulum, right iliac crest, left humerus, lumbar spine), liver, lung, left ovary and pelvic sidewall. Diagnosed with pulmonary embolism right lower lobe at [facility] in August 2017. Treatment with subcutaneous enoxaparin was initiated and continued as outpatient. Has been tachycardic over the past several months. Echocardiogram in August demonstrated normal left ventricular wall motion and function, no significant pericardial effusion. Started on metoprolol. Receiving chemotherapy under the direction of Dr. Mei in radiation therapy with Dr. Anais Rincon. Received chemotherapy over the past few days. Experienced malaise and nausea. Slept much of the time and had poor p.o. intake. She missed a few doses of some of her medications, including metoprolol, dexamethasone, and enoxaparin. Today she was scheduled for radiation therapy. She was very weak and lightheaded when she stood up and experienced palpitations. Symptoms associated with some midsternal chest pressure and dyspnea. No pleuritic chest pain. No lower extremity edema or pain. No fever, cough, or other symptoms suggestive of infection. Went to radiation therapy as scheduled; found to be tachycardic and referred to the ED for evaluation. . Physical Exam (per Admitting): General Appearance: no apparent distress, + obese Head: normocephalic, atraumatic Eyes: normal inspection, PERRL, EOMI, sclerae normal, + pertinent finding ( conjunctivae clear) ENT: hearing grossly normal, + pertinent finding (oral thrush) Neck: supple, no adenopathy, thyroid normal, trachea midline Respiratory/Chest: lungs clear, no accessory muscle use, + pertinent finding (vascular access device with right infraclavicular subcutaneous reservoir) Cardiovascular: regular rate, rhythm, no edema, no gallop, no JVD, no murmur Abdomen/GI: normal bowel sounds, non tender, soft, no organomegaly Extremities/Musculoskelatal: no calf tenderness, + pertinent finding (no cyanosis; no digital clubbing) Neurologic/Psych: associate editor II-XII nml as tested (PERRL, EOMI, no facial palsy, no dysarthria), no motor/sensory deficits (motor strength upper and lower extremities grossly intact), alert, normal mood/affect, oriented x 3 Skin: normal color, warm/dry, no rash Lymphatic: no adenopathy (cervical) Hospital Course 52 yo F presented with weakness and tachycardia post chemotherapy/XRT. She has improved with IVF. Still several loose BMs in setting of c-diff with recent vanco start. Tolerating PO. Afebrile. Without pain and with pain in her heels greatly improved on the Desitin and the gabapentin. Continues with XRT. Denies any diarrhea or abdominal pain at time of discharge. 1. Weakness-improved with supportive care and treatment of c-diff diarrhea. 2. Tachycardia-improved. persistent for several months and for which she is on metoprolol;increased her back to 25mg daily. 3. C-diff diarrhea-Vancomycin QID. Cont supportive care for diarrhea as needed. Contact precautions explained to patient for home environment.. 4. PE- chronic, RLL on CTA, on Lovenox 90 q12. 5. Neuropathy of feet-burning and dryness of feet. Cont lotion and Desitin and gabapentin at current dosing. 6. Metastatic adenocarcinoma of colon-currently undergoing XRT and on decadron , also on chemotherapy with infusion over the weekend. Oncology consulted. Pain minimal, however, analgesics PRN. 7. Pancytopenia-likely 2/2 chemo. No evidence of neutropenia. Cont daily CBCD. On day of discharge she was mentating and ambulating at baseline. She was afebrile and hemodynamically stable. Physical exam was unremarkable. She was sent home in guarded condition based on her cancer diagnosis. Lilian Holguin DO [facility] Hospitalist Total time spent on discharge = 60 minutes This includes examination of the patient, discharge planning, medication reconciliation, and communication with other providers. Discharge Instructions [facility] [address] [place] [address] Discharge Medical Patient Name: Ashlee Young Unit Number: [id number] Date of : 1965 Patient Status: Discharged Inpatient Attending Doctor: Lilian Holguin DO DI: Medical v4 Discharge Instructions Date of Service Nov 02, 2017. Admission Reason for Admission: Metastatic Colon Cancer In Female, Pulmonary Embol Discharge Discharge Diagnosis / Problem: hypovolemia, tachycardia, cdiff Discharge Goals Goal(s): Prevent Disease Progression Activity Recommendations Activity Limitations: per Instructions/Follow-up section . Instructions / Follow-Up Instructions / Follow-Up Please take all medications as instructed. Please follow-up with Oncology as instructed by Dr. Mei. Please follow-up/continue with radiation treatments next week per Dr. Rincon. Continue to apply Desitin (over the counter baby diaper cream) to heels as needed. You have an appointment for follow-up with Dr. Ronal Heredia on 11/07 @ 9147 for follow-up from this hospitalization. It was a pleasure taking care of you! Call if you have any questions or problems. You can reach a [facility] hospitalist on duty at [facility] 24 hours a day by calling [phone]. Take care of yourself. Lilian Holguin DO [facility] Hospitalist Current Hospital Diet Patient's current hospital diet: Regular Diet Discharge Diet Recommended Diet: Regular Diet Procedures Procedures Performed: Radiation while inpatient Pending Studies Studies pending at discharge: no Medical Emergencies . Who to Call and When: Medical Emergencies: If at any time you feel your situation is an emergency, please call 911 immediately. . Non-Emergent Contact Non-Emergency issues call your: Primary Care Provider . . "Provider Documentation" section prepared by Lilian Holguin. . VTE Core Measure Inpt VTE Proph given/why not?: Enoxaparin (Lovenox)SQ Additional Copies To Ronal Heredia M.D.
== END 2017-11-02 22:27 | disposition home health service (06) | DRG 308 ==
LOC: EDBD 14:25 → EDSEX 14:25 → C.EDC 14:26 → C.2T 19:30 → ENRESERV 19:49 → C.2E 10-30 17:14 → ENRESERV 10-31 14:58 → C.4E 10-31 15:41
PROVIDERS: ADMIT Hospitalist; ATTEND Hospitalist
DX: R00.0 Tachycardia, unspecified (principal); D61.810 Antineoplastic chemotherapy induced pancytopenia; I27.82 Chronic pulmonary embolism; C79.51 Secondary malignant neoplasm of bone; B37.0 Candidal stomatitis; A04.72 Enterocolitis due to Clostridium difficile, not specified as recurrent; C78.01 Secondary malignant neoplasm of right lung; C78.02 Secondary malignant neoplasm of left lung; C78.7 Secondary malignant neoplasm of liver and intrahepatic bile duct; C79.89 Secondary malignant neoplasm of other specified sites; R53.1 Weakness; G89.3 Neoplasm related pain (acute) (chronic); G57.93 Unspecified mononeuropathy of bilateral lower limbs; E86.0 Dehydration; Z91.138 Patient's unintentional underdosing of medication regimen for other reason; J45.909 Unspecified asthma, uncomplicated; Z51.81 Encounter for therapeutic drug level monitoring; Z79.899 Other long term (current) drug therapy; Z79.01 Long term (current) use of anticoagulants; Z79.52 Long term (current) use of systemic steroids; Z86.711 Personal history of pulmonary embolism; Z85.038 Personal history of other malignant neoplasm of large intestine; Z90.49 Acquired absence of other specified parts of digestive tract; Z85.43 Personal history of malignant neoplasm of ovary; Z90.722 Acquired absence of ovaries, bilateral; Z90.710 Acquired absence of both cervix and uterus; Z88.2 Allergy status to sulfonamides; Z82.49 Family history of ischemic heart disease and other diseases of the circulatory system; Z80.3 Family history of malignant neoplasm of breast; Z80.7 Family history of other malignant neoplasms of lymphoid, hematopoietic and related tissues

== ENCOUNTER → 2017-11-08 | Outpatient (CLI) | payer OTHER ==
[~2017-11-08] MED LIST changes: -ACET-1311 PO; +ALBUAER INH; +ENOX100I INJ; -ENOX30IN4 SQ; -ENOX60IN SQ; -FLUT0.15 NAE; +FLUT0.15 NEB; +GADAVIST IV PRN; +IMD/2 PO; -LOPE1TAB25 PO; -MORP-157 PO; +NRN300 PO; +NYSS5 PO; -OXYB5TAB PO; +OXYB5TAB21 PO; +VANC5CAP PO; -VNTHFA/IN INH
--- NOTE | 2017-11-08 20:58 | DIAGNOSTIC IMAGING REPORT ---
BRAIN COMBO CLINICAL HISTORY: 52 years-old Female presenting with CANCER OF SIGMOID,MALIGNANT NEOPLASM OF LIVER, dizziness, memory issues, on chemotherapy for metastatic colon cancer. TECHNIQUE: Multisequence, multiplanar MR imaging of the brain was performed before and after the administration of intravenous contrast. IV contrast: 9 mL of Gadavist. COMPARISON: None. FINDINGS: Ventricles and sulci normal in size. Periventricular and subcortical white matter T2/FLAIR hyperintensity, nonspecific but likely indicative of chronic small vessel ischemic change. No mass effect or midline shift. No restricted diffusion to suggest acute ischemia. No hemorrhage. No extra-axial fluid collection. T2 skull base flow voids preserved. No abnormal parenchymal enhancement. Bone marrow signal intensity within the calvarium within normal limits. IMPRESSION: 1. No acute intracranial pathology. No abnormal enhancement. Electronically signed by: Segun Allred M.D. 11/08/2017 8:57 PM Dictated Date/Time: 11/08/2017 8:51 PM
== END | disposition home or self-care (01) ==
LOC: C.MRI 19:40
PROVIDERS: ATTEND Internal Medicine Hematology & Oncology
DX: C18.7 Malignant neoplasm of sigmoid colon (principal); C78.7 Secondary malignant neoplasm of liver and intrahepatic bile duct

== ENCOUNTER → 2017-11-21 | Outpatient (CLI) | payer OTHER ==
[~2017-11-21] MED LIST changes: -GADAVIST IV PRN; +ONDA-170 PO; -ONDA8TAB6 PO; -VANC5CAP PO
--- NOTE | 2017-11-22 06:54 | PAP/PSG TECHNICIAN REPORT ---
[facility] Bread Racker Polysomnogram Report Study name: None Report date: 11/22/2017 Study date: 11/21/2017 Referring Physician: Dr. Avani Rios M.D. Name: RITESH YOUNG Interpreting Physician: Jcarlos Conway M.D. Date of : 1965 Bread Racker: Verenice Meyer [facility]. Sex: Female Age: 52 StudyType: PSG Weight: 185 lbs Height: 52 years, Height 5' 4" Neck Circum: 13.5 inches BMI: 31.75 Medications: Acetaminophen 325 mg, Albuterol 108 ( 90 Base), Duoneb 2.5-0.5 MG/3ML, Dexamethasone 4 mg, Lomotil 2.5-0.025 mg, Duloxetine 60 mg, Lovenox 100 mg, Flonase 50 MCG, Gabapentin 300 mg, Imodium A-D, Metoprolol Succinate 25mg, Dulera 100-5 MCG/ACT, Morphine Sulfate 30 mg, Nystatin [id number], Omeprazole 20 mg, Ondansetron 8 mg, Oxybutynin XL 5 mg, [id number], Prochlorperazine 10 mg, Trazodone 50 mg, Vancomycin 125 mg Patient History 52 yr. old female here for a possible split night sleep study if AHI>15. Patient complains of EDS. Patient was hospitalized in August and was told she had apnea. Patient has a history of PE, asthma, palpitations, colon ca, anxiety, and chronic pain. ESS 15/24. Parameters Monitored NPSG: E1-M2, E2-M1, Fp1-M2, Fp2-M1, F3-M2, F4-M2, F4-M1, C3-M2, C4-M2, C4-M1, O1-M2, O2-M2, O2-M1, T3-M2, T4-M1, P3-M2, P4-M1, CHIN1, CHIN2, HR, EKG, Legs, PFLOW, SNOR, FLOW, CFLOW, Tidal Volume, THOR, ABDO, SpO2, PLTH, CPRESS, ETCO2 Wave, ETCO2, pH Sleep Architecture Sleep Stages Time at Lights Off 8:39:57 PM STAGES Time (min.) TST (%) Time at Lights On 5:48:27 AM Wake 227.5 -- Total Recording Time (TRT) 549.00 min. N1 48.5 15 Total Sleep Period (TSP) 506.5 min. N2 252.0 79 Total Sleep Time (TST) 321.0min. N3 0.0 0 Awake Time 227.5 min. REM 20.5 6 Wake after Sleep Onset 185.5 min. Sleep Efficiency (SE) 59 % Sleep Onset Latency (JUANJO) 42.0 min. Number of Stage 1 Shifts None Awakenings 24 Stage Changes 80 Number of REM periods 1 REM 20.5 6 REM Latency 398.0 min. NREM 300.5 94 Body Position Analysis Supine Right Left Side Prone Vertical Total Sleep Time (min.) 14.5 169.5 151.5 321.00 0.0 4.7 Total Sleep Time (%) 0% 53% 47% 100 0% N/A% Total Sleep Time REM (min.) 0.0 20.5 0.0 None 0.0 0.0 Total Sleep Time NREM (min.) 0.0 149.0 151.5 None 0.0 0.0 Intermittent Wake (min.) 14.5 89.0 119.3 None 0.0 4.7 Total Sleep Period (%) 3% None None None None None Arousals Myoclonus (PLM) * Events Count Index Events Count Index Spontaneous 10 2 Events Awake (PLMW) 101 26.6 Respiratory 0 0.0 Events Asleep w/ Arousal (PLMA) 6 1.1 PLM 6 1 Events Asleep w/o Arousal (PLMS) 100 18.7 Snoring 6 1 Total Asleep 106 19.8 Total 22 4 Total 207 23 Respiratory Analysis * CA OA MA CH H RERA Total Count 0 0 0 0 2 0 2 Index 0.0 0.0 0.0 0 0.4 0 0.4 Mean Duration 0.0 0.0 0.0 0.00 29.0 0.0 29.0 Longest Duration 0.0 0.0 0.0 0.00 0.0 0.0 29.4 Respiratory Event Summary Total Supine ~Supine Right Left Prone REM NREM Apneas Count 0 N/A 0 0 0 N/A 0 0 Index 0.0 N/A 0 0.0 0.0 N/A 0 0 Hypopneas (4% Desat) Count 2 N/A 2 1 1 N/A 0 2 Index 0.4 N/A 0 0.4 0.4 N/A 0.0 0.4 Apneas & All Hypopneas Count 2 N/A 2 1 1 N/A 0 2 Index 0.4 N/A 0 0 0 N/A 0.0 0.4 Respiratory Events (Wheel Cleaner+All Hyp+RERA) Count 2 N/A 2 1 1 N/A 0 2 Index 0.4 N/A 0 0.4 0.4 N/A 0.0 0.4 Respiratory Related Arousal Count 0 N/A 0 0 0 N/A 0 0 Index 0.0 N/A 0 0 0 N/A 0 0 Snoring Analysis Supine Right Left Prone REM NREM Total Snore duration 3.7 min Snores count N/A 51 113 N/A 2 162 164 Snore mean duration 1.4 Sec Snores index N/A 18 45 N/A 5.9 32.3 30.7 TST with snoring (%) 1.2% SpO2 Analysis Total REM NREM Awake <50% 0.0 min. 0.0 min. 0.0 min. 0.0 min. 51 - 60% 0.0 min. 0.0 min. 0.0 min. 0.0 min. 61 - 70% 0.0 min. 0.0 min. 0.0 min. 0.0 min. 71 - 80% 0.0 min. 0.0 min. 0.0 min. 0.0 min. 81 - 90% 13.3 min. 1.4 min. 6.6 min. 5.3 min. 91 - 100% 527.6 min. 19.1 min. 293.9 min. 214.6 min. Average 94 92 94 94 Minimum SpO2 70 90 89 70 Desaturation Event Index 2.2 2.9 1.8 2.6 # Desat. Events below 89% 1 N/A N/A 1 Time(%) with Saturation below 89% 0.1 0.0 0.0 0.1 Time(min.) with Saturation below 89% 0.6 0.0 0.0 0.6 Heart Rate Analysis End Tidal CO2 Analysis Min (bpm) Max (bpm) Average (bpm) TSP (mins) % of TSP Awake 81 127 97 Above 55 mmHg 0.0 0.0 NREM 69 111 90 50-55 mmHg 0.0 0.0 REM 74 105 93 45-50 mmHg 0.0 0.0 Overall 69 111 90 40-45 mmHg 0.0 0.0 35-40 mmHg 0.0 0.0 30-35 mmHg 0.7 0.2 Average ETCO2 0.0 Supplemental O2 Values Minimum O2 level: None Value Start Time End Time Bread Racker Comments MS. Young slept in the right, left, and supine positions. Tachycardia and PLMs noted. No bruxism noted. Snoring was noted and scored as a 1 on a scale of 0 through 5. (0=no snoring, 5=snoring loud enough to be heard through a closed door or down the hough way) MS. Young awoke to use the restroom once during the night. MS. Young stated, it took me a long time to get to sleep. The final report will be interpreted and signed by a sleep physician. The completed physician report will then be placed in the patient medical record. Therapy (cm H2O) 0 TIB (min.) 548.5 TST (min.) 321.0 Sleep Onset (min.) 42.0 REM Onset From Sleep (min.) 398.0 Sleep Efficiency % 59 Wakefulness (%) 41 Wakefulness (min.) 227.5 NREM 1 (%) 15 NREM 1 (min.) 48.5 NREM 2 (%) 79 NREM 2 (min.) 252.0 NREM 3 (%) 0 NREM 3 (min.) 0.0 REM (%) 6 REM (min.) 20.5 # Arousals 22 Arousal Index 4 # Snore 164 Snore Index 30.7 AHI 0.4 AHI Supine N/A AHI Non-Supine 0 NREM AHI 0.4 REM AHI 0.0 RDI 0.4 # Obstructive Apnea 0 # Central Apnea 0 # Mixed Apnea 0 # Hypopneas 2 RERAs 0 Total Respiratory Events 4 Time Below SpO2 89% (min.) 0.0 Mean NREM SpO2 (%) 94 Mean REM SpO2 (%) 92 Mean Sleep SpO2 (%) 94 Min NREM SpO2 (%) 89 Min REM SpO2 (%) 90 Position Supine (min.) 14.5 Position Non-supine (min.) 321.0 LM Index Sleep 19.8 LM Index NREM 21.2 LM Index REM 0.0 Mean Heart Rate (bpm) 90 Min Heart Rate (bpm) 69
--- NOTE | 2017-11-26 07:57 | POLYSOMNOGRAPH REPORT ---
CLINICAL DATA: A 52-year-old female with BMI of 31.75, referred by Dr. Rios for possible split night study with excessive daytime sleepiness. She was hospitalized in August and was told she had apneic episodes. Her Mobile sleepiness score is 15/24. SLEEP ARCHITECTURE: Total sleep period was 506.5 minutes. Total sleep time was 321 minutes, divided between 300.5 minutes of non-REM sleep and 20.5 minutes of REM sleep. Sleep onset latency was delayed at 42 minutes. REM latency was delayed at 398 minutes. Sleep efficiency was reduced to 59%. Wake after sleep onset was elevated at 185.5 minutes. Sleep consisted of stage N1 15%, stage N2 79%, and REM 6%. AROUSAL DATA: 22 arousals were recorded for an index of 4 per hour. PERIODIC LIMB MOVEMENTS DATA: 106 limb movements during sleep were noted for an index of 19.8 per hour with arousal index of 1 per hour. RESPIRATORY DATA: There was no evidence of clinically significant sleep apnea seen. The AHI was 0.4. There were 2 hypopneic episodes with a mean duration of 29 seconds. OXIMETRY DATA: No hypoxemia was seen. Oxygen meet was 89%. Mean saturation was 94%. ELECTROCARDIOGRAM: Heart rates ranged from 69-111 beats per minute. No arrhythmias were noted. JUNIOR FINANCIAL ANALYST'S COMMENTS: The patient slept in the right, left, and supine positions. Snoring was mild, rated 1 on a scale of 1-5. IMPRESSION: No evidence of clinically significant sleep apnea/hypopnea, nocturnal hypoxemia or abnormal limb movements during sleep to explain this patient's symptoms. RECOMMENDATIONS: The patient should continue to practice good sleep hygiene. MIKE
== END | disposition home or self-care (01) ==
LOC: C.NEUR 20:00
PROVIDERS: ATTEND Internal Medicine
DX: G47.33 Obstructive sleep apnea (adult) (pediatric) (principal)

== ENCOUNTER → 2017-12-10 | Outpatient (CLI) | payer OTHER ==
--- NOTE | 2017-12-10 12:22 | DIAGNOSTIC IMAGING REPORT ---
ADDENDUM Addendum: Outside PET/CT scan performed at [facility] dated 10/10/2017 has become available for correlation. The multiple FDG avid ovary masses remain essentially unchanged in size. The largest right lower lobe point nodule measuring 26 mm, currently has an SUV maximum of 10.9. This previously had an SUV maximum of 7.9. The innumerable FDG avid hepatic lesions have increased in size when compared the preceding study. FDG activity is also increased with a current SUV maximum of 12.8 compared to a prior SUV maximum of 9.3. The nodules were difficult to measure on the prior study as they were very difficult to visualize the noncontrast examination. The interval development of hepatic steatosis makes visualization of the masses much easier. The PET portion the study, strongly suggest that these masses have increased in size. The FDG avid skeletal lesions, appear to demonstrate slight progression. IMPRESSION: 1. Relatively stable pulmonary metastatic disease 2. Progressive hepatic metastatic disease 3. Progressive skeletal metastatic disease Electronically signed by: Javon Carrillo M.D. 12/12/2017 12:24 PM Dictated Date/Time: 12/12/2017 12:14 PM ORIGINAL REPORT PET/CT SKULL-THIGH CLINICAL HISTORY: COLORECTAL CANCER COMPARISON STUDY: No previous studies for comparison. FINDINGS: The patient was injected with 11.8 mCi of F 18 labeled FDG. Following the standard induction phase, PET/CT scanning was performed from the skull base to the upper thigh region. The patient was unable to lift her arms, the patient was scanned with her arms at her side. Activity with thin the neck is felt to be physiologic. Within the chest, there are bilateral FDG avid pulmonary nodules. The 3 largest are a 26 mm right lower lobe pulmonary nodule with SUV maximum of 10.9. A 1 cm left upper lobe pulmonary nodule with SUV maximum of 4.9, and a 9 mm right upper lobe pulmonary nodule with SUV maximum of 4. Within the abdomen, there is hepatic steatosis. There are innumerable coalescent markedly FDG avid hepatic masses. An index mass within the left hepatic lobe measures 54 mm. This has an SUV maximum of 12.8. An index lesion within the right hepatic lobe measures 34 mm. This hasn't SUV maximum of 9.8. Several of the lesions demonstrate decreased activity centrally suggesting central necrosis. There is no pathologic adrenal gland activity. There is no pathologic douglas activity within the abdomen or pelvis. There are multiple FDG avid skeletal lesions. These include among others a lesion within the lesser trochanter of the right hip, a small intratrochanteric lesion within the left hip, bilateral acetabular lesions, multiple sacral lesions, multiple vertebral lesions, a sternal lesion, and a proximal left humeral lesion. The left proximal humeral lesion which shows and as the index lesion. This has an SUV maximum of 10.1. IMPRESSION: 1. Multiple FDG avid pulmonary nodules, indicative of metastatic disease 2. Innumerable hepatic masses in the setting of hepatic steatosis. The lesions are markedly FDG avid and are indicative of metastatic disease 3. Multiple FDG avid skeletal lesions indicative of metastatic disease Electronically signed by: Javon Carrillo M.D. 12/10/2017 12:21 PM Dictated Date/Time: 12/10/2017 12:10 PM
== END | disposition home or self-care (01) ==
LOC: C.PET 08:40
PROVIDERS: ATTEND Physician Assistant
DX: C78.7 Secondary malignant neoplasm of liver and intrahepatic bile duct (principal); C19 Malignant neoplasm of rectosigmoid junction